=== PATIENT | female | born 1945 | race Caucasian/White ===

== ENCOUNTER 2017-10-22 15:25 | Emergency (ER) | payer OTHER, SELFPAY ==
[2017-10-22 15:47] VITALS: BP 163/61; PULSE 88; RESP 18; TEMP 36.8; O2SAT 99
--- NOTE | 2017-10-22 16:21 | DI.RAD.S_ITS ---
PROCEDURE: XR CHEST 1V INDICATIONS: fever TECHNIQUE: One view of the chest was acquired. COMPARISON: None. FINDINGS: Surgical changes and devices: A PICC line extends from left-sided approach into the distal SVC just below the azygos arch level. Lungs and pleura: No pleural effusions or pneumothorax. Lungs are clear considering reduced inspiratory line. Mediastinum: Mediastinal contours appear normal. Heart size is normal. Bones and chest wall: No suspicious bony lesions. Overlying soft tissues appear unremarkable. IMPRESSION: Normal PICC line positioning, reduced inspiratory volume, no pneumonia found. Slight basilar atelectasis is present medially in the setting of reduced inspiration. Dictated by: Jose Head M.D. on 10/22/2017 at 16:54 Approved by: Jose Head M.D. on 10/22/2017 at 16:55
[2017-10-22 16:30] VITALS: BP 147/55; PULSE 67; RESP 14; TEMP 36.9
[2017-10-22 17:00] VITALS: BP 171/57
[2017-10-22 17:03] LABS: Add Manual Diff / Slide Review NO; Basophils Percent Auto 0.5 % (0-2); Eosinophils Percent Auto 1.8 % (2-4); Hematocrit 24.6 % (36-46); Hemoglobin 8.2 g/dL (12.0-16.0); Lymphocytes Percent Auto 9.3 % (25-40); Mean Corpuscular HGB Conc 33.2 % (30-36); Mean Corpuscular Volume 93.3 fL (80-100); Monocytes Percent Auto 10.5 % (3-14); Neutrophils Absolute Auto 6400 /uL (3000-5900); Neutrophils Percent Auto 77.9 % (50-75); Platelet Count 485 X10^3/uL (150-400); Red Blood Cell Count 2.64 X10^6/uL (4.0-5.2); Red Cell Distribution Width 14.7 % (11.6-14.8); White Blood Cell Count 8.2 X10^3/uL (4.5-11.0)
[2017-10-22 17:23] LABS: BUN Creatinine Ratio 7.9 (6-22); Blood Urea Nitrogen 11 mg/dL (7-17); Calcium 8.9 mg/dL (8.4-10.2); Carbon Dioxide 25 mmol/L (22-32); Chloride 101 mmol/L (98-107); Estimated Glomerular Filt Rate 37.2 mL/min (>60); Glucose 178 mg/dL (80-110); HEMOLYSIS < 15 (0-50); Lactate (Lactic Acid) 1.4 mmol/L (0.7-2.1); Potassium 4.9 mmol/L (3.4-5.1); Sodium 137 mmol/L (137-145)
[2017-10-22 17:41] LABS: Procalcitonin < 0.05 ng/mL (<0.5)
[2017-10-22 18:00] VITALS: BP 151/88; PULSE 77; RESP 17; TEMP 37.2; O2SAT 94
[2017-10-22 19:20] VITALS: BP 146/85; PULSE 87; TEMP 36.9; O2SAT 99
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
== END 2017-10-22 19:56 | disposition home or self-care (01) ==
PROVIDERS: Emergency Medicine; Emergency Provider Emergency Medicine; PCP Family Medicine
DX: R50.9 Fever, unspecified (principal); Z95.828 Presence of other vascular implants and grafts
CPT/HCPCS: 36591; 71045; 80048; 82962; 83605; 84145; 85025; 87040; 99283; 99284

== ENCOUNTER → 2017-10-30 10:59 | Outpatient (REF) | payer OTHER, SELFPAY ==
[2017-10-30 11:14] LABS: Add Manual Diff / Slide Review NO; Basophils Percent Auto 1.4 % (0-2); Eosinophils Percent Auto 3.5 % (2-4); Hematocrit 26.9 % (36-46); Hemoglobin 8.8 g/dL (12.0-16.0); Lymphocytes Percent Auto 12.5 % (25-40); Mean Corpuscular HGB Conc 32.7 % (30-36); Mean Corpuscular Hemoglobin 30.4 PG (26-34); Monocytes Percent Auto 9.5 % (3-14); Neutrophils Absolute Auto 4800 /uL (3000-5900); Neutrophils Percent Auto 73.1 % (50-75); Platelet Count 274 X10^3/uL (150-400); Red Cell Distribution Width 15.3 % (11.6-14.8); White Blood Cell Count 6.6 X10^3/uL (4.5-11.0)
[2017-10-30 11:20] LABS: Alanine Aminotransferase 21 IU/L (9-52); Albumin 2.9 g/dL (3.5-5.0); Albumin Globulin Ratio 1.1 (1.0-2.8); Alkaline Phosphatase 75 U/L (38-126); Aspartate Aminotransferase 15 IU/L (14-36); BUN Creatinine Ratio 17.5 (6-22); Bilirubin Total 0.2 mg/dL (0.2-1.3); Blood Urea Nitrogen 21 mg/dL (7-17); Carbon Dioxide 24 mmol/L (22-32); Chloride 101 mmol/L (98-107); Estimated Glomerular Filt Rate 44.4 mL/min (>60); Globulin 2.7 g/dL (1.7-4.1); Glucose 118 mg/dL (80-110); HEMOLYSIS < 15 (0-50); Potassium 5.2 mmol/L (3.4-5.1); Sodium 135 mmol/L (137-145); Total Protein 5.6 g/dL (6.3-8.2)
[2017-10-30 11:26] LABS: Vancomycin Trough 13.1 ug/mL (10-20)
== END ==
LOC: LAB 10:59
PROVIDERS: PCP Family Medicine; Visit Provider Family Medicine
DX: S67.21XA Crushing injury of right hand, initial encounter (principal); M86.041 Acute hematogenous osteomyelitis, right hand
CPT/HCPCS: 80048; 80076; 80202; 85025

== ENCOUNTER → 2017-11-15 09:06 | Outpatient (CLI) | payer OTHER, SELFPAY ==
[2017-11-15 10:10] LABS: Add Manual Diff / Slide Review NO; Basophils Percent Auto 0.8 % (0-2); Hemoglobin 7.8 g/dL (12.0-16.0); Lymphocytes Percent Auto 11.8 % (25-40); Mean Corpuscular HGB Conc 33.3 % (30-36); Mean Corpuscular Hemoglobin 30.7 PG (26-34); Mean Corpuscular Volume 92.1 fL (80-100); Monocytes Percent Auto 7.5 % (3-14); Neutrophils Absolute Auto 7400 /uL (3000-5900); Neutrophils Percent Auto 78.9 % (50-75); Platelet Count 321 X10^3/uL (150-400); Red Blood Cell Count 2.53 X10^6/uL (4.0-5.2); Red Cell Distribution Width 15.7 % (11.6-14.8); White Blood Cell Count 9.4 X10^3/uL (4.5-11.0)
[2017-11-15 10:11] LABS: Hematocrit 23.3 % (36-46)
[2017-11-15 11:14] LABS: Alanine Aminotransferase 17 IU/L (9-52); Albumin 3.5 g/dL (3.5-5.0); Albumin Globulin Ratio 1.2 (1.0-2.8); Alkaline Phosphatase 51 U/L (38-126); Aspartate Aminotransferase 19 IU/L (14-36); BUN Creatinine Ratio 14.6 (6-22); Bilirubin Total 0.2 mg/dL (0.2-1.3); Blood Urea Nitrogen 19 mg/dL (7-17); Calcium 9.4 mg/dL (8.4-10.2); Carbon Dioxide 23 mmol/L (22-32); Chloride 101 mmol/L (98-107); Estimated Glomerular Filt Rate 40.5 mL/min (>60); Glucose 151 mg/dL (80-110); HEMOLYSIS < 15 (0-50); Potassium 5.3 mmol/L (3.4-5.1); Sodium 137 mmol/L (137-145); Total Protein 6.5 g/dL (6.3-8.2)
[2017-11-15 14:31] LABS: Clostridium Difficile Tox PCR Negative for C. diff
== END ==
PROVIDERS: PCP Family Medicine; Visit Provider Physician Assistant Medical
DX: M86.9 Osteomyelitis, unspecified (principal)
CPT/HCPCS: 36415; 80053; 85025; 87493

== ENCOUNTER → 2017-11-19 14:15 | Outpatient (CLI) | payer OTHER, SELFPAY ==
[2017-11-19 14:41] LABS: Add Manual Diff / Slide Review NO; Basophils Percent Auto 0.5 % (0-2); Eosinophils Percent Auto 1.6 % (2-4); Lymphocytes Percent Auto 14.7 % (25-40); Mean Corpuscular HGB Conc 32.7 % (30-36); Mean Corpuscular Hemoglobin 29.7 PG (26-34); Mean Corpuscular Volume 90.8 fL (80-100); Monocytes Percent Auto 10.7 % (3-14); Neutrophils Absolute Auto 6000 /uL (3000-5900); Neutrophils Percent Auto 72.5 % (50-75); Platelet Count 382 X10^3/uL (150-400); Red Blood Cell Count 2.68 X10^6/uL (4.0-5.2); Red Cell Distribution Width 15.8 % (11.6-14.8); White Blood Cell Count 8.2 X10^3/uL (4.5-11.0)
[2017-11-19 14:48] LABS: Hematocrit 24.3 % (36-46)
[2017-11-19 15:07] LABS: BUN Creatinine Ratio 17.1 (6-22); Blood Urea Nitrogen 24 mg/dL (7-17); Calcium 9.4 mg/dL (8.4-10.2); Carbon Dioxide 20 mmol/L (22-32); Chloride 100 mmol/L (98-107); Estimated Glomerular Filt Rate 37.2 mL/min (>60); Glucose 139 mg/dL (80-110); HEMOLYSIS < 15 (0-50); Potassium 5.3 mmol/L (3.4-5.1); Sodium 137 mmol/L (137-145)
== END ==
PROVIDERS: PCP Family Medicine; Visit Provider Physician Assistant Medical
DX: M86.9 Osteomyelitis, unspecified (principal)
CPT/HCPCS: 36415; 80048; 85025

== ENCOUNTER → 2017-11-22 08:01 | Outpatient (CLI) | payer OTHER, SELFPAY ==
[2017-11-22 08:44] LABS: BUN Creatinine Ratio 16.5 (6-22); Blood Urea Nitrogen 28 mg/dL (7-17); Calcium 9.3 mg/dL (8.4-10.2); Carbon Dioxide 26 mmol/L (22-32); Chloride 102 mmol/L (98-107); Estimated Glomerular Filt Rate 29.7 mL/min (>60); Glucose 70 mg/dL (80-110); HEMOLYSIS < 15 (0-50); Sodium 138 mmol/L (137-145)
[2017-11-22 08:45] LABS: Potassium 5.5 mmol/L (3.4-5.1)
[2017-11-22 09:23] LABS: Hemoglobin A1C% w Est Avg Glu 5.9 % (4.0-6.0)
== END ==
PROVIDERS: PCP Family Medicine; Visit Provider Physician Assistant Medical
DX: E11.8 Type 2 diabetes mellitus with unspecified complications (principal); Z79.4 Long term (current) use of insulin; M86.9 Osteomyelitis, unspecified
CPT/HCPCS: 36415; 80048; 83036

== ENCOUNTER 2017-11-22 15:50 | Emergency (ER) | payer OTHER, SELFPAY ==
[2017-11-22 16:17] VITALS: BP 135/65; PULSE 98; RESP 18; TEMP 37.4; O2SAT 99; BMI 28.0
--- NOTE | 2017-11-22 18:42 | DI.US.S_ITS ---
PROCEDURE: US RENAL COMPLETE INDICATIONS: WORSENING RENAL FUNCTION TECHNIQUE: Real-time scanning was performed of the kidneys and bladder, with image documentation. COMPARISON: None. FINDINGS: Kidneys: Kidneys are normal in size. Right kidney measures 11.3 cm long; left kidney measures 11.5 cm long. Right renal cortical thickness is 1.4 cm; left renal cortical thickness is 1.5 cm. Renal cortical echotexture is normal. No hydronephrosis or nephrolithiasis. No suspicious solid mass lesions. Bladder: Pre-void bladder volume is 151.8 mL. Pre-void images demonstrate no intraluminal masses or stones. On pre-void images, no ureteral jets are noted with color Doppler interrogation. (Of note, ureteral jets may not be detectable in up to 25% of cases due to insufficient differences in specific gravity between ureteral and bladder urine). Miscellaneous: No free pelvic fluid. IMPRESSION: No hydronephrosis. Dictated by: Darien Dent M.D. on 11/22/2017 at 20:38 Approved by: Darien Dent M.D. on 11/22/2017 at 20:41
--- NOTE | 2017-11-22 18:42 | DI.US.S_ITS ---
PROCEDURE: US PERIPH VENOUS LOW EXTREM BI INDICATIONS: EDEMA TECHNIQUE: Real-time imaging, as well as color and pulse Doppler interrogation, were performed of the deep veins of both legs from the inguinal ligament to the popliteal fossa. COMPARISON: [facility], US, US RENAL COMPLETE, 11/22/2017, 18:47. FINDINGS: The bilateral deep veins are normally compressible, and free of intraluminal thrombus. Color and pulse Doppler demonstrate normal phasic intravascular flow. There is normal augmentation response to distal compression maneuver. IMPRESSION: No deep venous thrombosis in the bilateral lower extremities. Dictated by: Darien Dent M.D. on 11/22/2017 at 20:45 Approved by: Darien Dent M.D. on 11/22/2017 at 20:47
[2017-11-22 18:46] LABS: Add Manual Diff / Slide Review NO; Basophils Percent Auto 0.5 % (0-2); Eosinophils Percent Auto 3.2 % (2-4); Hematocrit 22.2 % (36-46); Hemoglobin 7.3 g/dL (12.0-16.0); Lymphocytes Percent Auto 19.7 % (25-40); Mean Corpuscular HGB Conc 32.8 % (30-36); Mean Corpuscular Hemoglobin 29.8 PG (26-34); Mean Corpuscular Volume 90.9 fL (80-100); Monocytes Percent Auto 8.7 % (3-14); Neutrophils Absolute Auto 5400 /uL (3000-5900); Neutrophils Percent Auto 67.9 % (50-75); Platelet Count 370 X10^3/uL (150-400); Red Blood Cell Count 2.45 X10^6/uL (4.0-5.2); Red Cell Distribution Width 15.8 % (11.6-14.8)
[2017-11-22 18:55] LABS: Prothrombin Time 11.3 SECONDS (10.1-12.7)
[2017-11-22 18:58] VITALS: PULSE 80
[2017-11-22 18:58] LABS: Alanine Aminotransferase 14 IU/L (9-52); Albumin 3.7 g/dL (3.5-5.0); Albumin Globulin Ratio 1.4 (1.0-2.8); Alkaline Phosphatase 46 U/L (38-126); Aspartate Aminotransferase 18 IU/L (14-36); BUN Creatinine Ratio 18.1 (6-22); Bilirubin Total 0.3 mg/dL (0.2-1.3); Blood Urea Nitrogen 29 mg/dL (7-17); Calcium 9.2 mg/dL (8.4-10.2); Carbon Dioxide 22 mmol/L (22-32); Chloride 101 mmol/L (98-107); Estimated Glomerular Filt Rate 31.9 mL/min (>60); Globulin 2.6 g/dL (1.7-4.1); Glucose 89 mg/dL (80-110); HEMOLYSIS < 15 (0-50); Potassium 5.3 mmol/L (3.4-5.1); Sodium 135 mmol/L (137-145); Total Protein 6.3 g/dL (6.3-8.2)
--- NOTE | 2017-11-22 19:00 | PC.NURSE ---
Pt has had increasing Creatnine w/ unknown origen. Has had multiple surgical procedures w/ limited anti coagulation. Call from [facility] who is concerned about DVTs and renal impairment r/t clot formation. Requested renal ultrasound as well bilateral lower extremities.
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
[2017-11-22 20:08] VITALS: BP 131/72; PULSE 80; RESP 18; O2SAT 99
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
== END 2017-11-22 20:12 | disposition home or self-care (01) ==
PROVIDERS: Emergency Provider Emergency Medicine; PCP Family Medicine
DX: R60.0 Localized edema (principal)
CPT/HCPCS: 36591; 76770; 80053; 85025; 85610; 93970; 99282; 99284

== ENCOUNTER → 2017-11-28 13:28 | Outpatient (CLI) | payer OTHER, SELFPAY ==
[2017-11-28 14:53] LABS: Add Manual Diff / Slide Review NO; Basophils Percent Auto 0.6 % (0-2); Eosinophils Percent Auto 2.9 % (2-4); Hematocrit 24.6 % (36-46); Hemoglobin 8.1 g/dL (12.0-16.0); Lymphocytes Percent Auto 15.5 % (25-40); Mean Corpuscular HGB Conc 33.1 % (30-36); Mean Corpuscular Hemoglobin 29.5 PG (26-34); Mean Corpuscular Volume 89.3 fL (80-100); Monocytes Percent Auto 10.3 % (3-14); Neutrophils Absolute Auto 5000 /uL (3000-5900); Neutrophils Percent Auto 70.7 % (50-75); Platelet Count 293 X10^3/uL (150-400); Red Blood Cell Count 2.75 X10^6/uL (4.0-5.2); Red Cell Distribution Width 15.8 % (11.6-14.8); White Blood Cell Count 7.1 X10^3/uL (4.5-11.0)
[2017-11-28 15:23] LABS: BUN Creatinine Ratio 18.6 (6-22); Blood Urea Nitrogen 26 mg/dL (7-17); Calcium 9.1 mg/dL (8.4-10.2); Carbon Dioxide 27 mmol/L (22-32); Chloride 101 mmol/L (98-107); Estimated Glomerular Filt Rate 37.2 mL/min (>60); Glucose 173 mg/dL (80-110); HEMOLYSIS < 15 (0-50); Potassium 4.7 mmol/L (3.4-5.1); Sodium 140 mmol/L (137-145)
== END ==
PROVIDERS: Family Provider Family Medicine; PCP Family Medicine; Visit Provider Physician Assistant Medical
DX: M86.141 Other acute osteomyelitis, right hand (principal)
CPT/HCPCS: 36415; 80048; 85025

== ENCOUNTER → 2018-04-30 09:11 | Outpatient (CLI) | payer OTHER, SELFPAY ==
[2018-04-30 10:36] LABS: Creatinine Urine Random 97.9 mg/dL
[2018-04-30 10:40] LABS: Microalbumi Creatinin Ratio Ur 24.5 ug/mg CR (<30); Microalbumin Urine Random 2.4 mg/dL (0-1.6)
== END ==
PROVIDERS: Family Provider Family Medicine; PCP Family Medicine; Visit Provider Nurse Practitioner
DX: E11.65 Type 2 diabetes mellitus with hyperglycemia (principal); Z79.4 Long term (current) use of insulin
CPT/HCPCS: 82043; 82570

== ENCOUNTER → 2018-05-28 09:39 | Outpatient (CLI) | payer OTHER, SELFPAY ==
--- NOTE | 2018-05-28 | DI.MG.S_ITS ---
BILATERAL DIGITAL SCREENING MAMMOGRAM 3D/2D WITH CAD: 05/28/2018 CLINICAL: Routine screening. Family history of breast cancer. Comparison is made to exams dated: 05/20/2017 mammogram - [facility], 05/02/2016 mammogram, and 04/18/2015 mammogram - [facility]. The tissue of both breasts is heterogeneously dense. This may lower the sensitivity of mammography. Current study was also evaluated with a Computer Aided Detection (CAD) system. No significant masses, calcifications, or other findings are seen in either breast. There has been no significant interval change. IMPRESSION: NEGATIVE There is no mammographic evidence of malignancy. A 1 year screening mammogram is recommended. This exam was interpreted at Station ID: [id number]. NOTE: For mammograms, a report in lay terms will be sent to the patient. Approximately 15% of breast malignancies will not be visualized mammographically. In the management of a palpable breast mass, a negative mammogram must not discourage biopsy of a clinically suspicious lesion. Electronically Signed By: Tania hernandez/trae:05/28/2018 14:34:56 letter sent: Normal Exam ACR BI-RADS Category 1: Negative 3341F
== END ==
PROVIDERS: Family Provider Family Medicine; PCP Family Medicine; Visit Provider Family Medicine
DX: Z12.31 Encounter for screening mammogram for malignant neoplasm of breast (principal); Z80.3 Family history of malignant neoplasm of breast
CPT/HCPCS: 77063; 77067

== ENCOUNTER → 2018-06-17 13:42 | Outpatient (CLI) | payer OTHER, SELFPAY ==
--- NOTE | 2018-06-17 | DI.ECHO.S_ITS ---
[facility]---------+ [facility] +---------+ : : [address] : : : : [id number] : : : : Phone: [phone]---------+ Echocardiogram Report + + :Name: IQRA GALLARDO Study Date: 06/17/2018 Height: 62 in : :[facility] Location: [facility] Weight: 156 lb : : Gender: Female BSA: 1.7 m2 : :: 1945 Age: 72 yrs BP: 120/70 mmHg: :Reason For Study: Mitral valve disease : :Ordering Physician: : :Zenon Peoples M.D. Performed By: Diane Page : + + Interpretation Summary The ejection fraction is estimated to be 55-60%. Both atria are mildly dilated. An annuloplasty ring is noted in the mitral position. No significant mitral valve stenosis. There is trace mitral regurgitation. Compared to the prior echo report on 2017, there is no significant change. Procedure: A two-dimensional transthoracic echocardiogram with color flow and Doppler was performed. The study quality was technically adequate. Comparison is made with the echocardiogram of 08/17/2016. The patient was in normal sinus rhythm during the exam. Left Ventricle: Left ventricular wall thickness is borderline increased. The left ventricle is normal in size. The ejection fraction is estimated to be 55- 60%. Left ventricular wall motion is normal. Diastolic function could not be accurately assessed due to confounding valvular disease. Right Ventricle: The right ventricle is normal in size and function. Atria: Both atria are mildly dilated. There is no Doppler evidence for an interatrial shunt. Mitral Valve: An annuloplasty ring is noted in the mitral position. No significant mitral valve stenosis. There is trace mitral regurgitation. Aortic Valve: The aortic valve is trileaflet. The aortic valve opens well. No aortic regurgitation is present. Tricuspid Valve: The tricuspid valve is normal in structure and function. There is a trace or physiologic amount of tricuspid regurgitation. Pulmonary artery pressures cannot be estimated because of the lack of a measurable TR jet velocity. Pulmonic Valve: The pulmonic valve is not well visualized. There is a trace or physiologic amount of pulmonic regurgitation. Great Vessels: The aortic root is normal size. The ascending aorta is normal in size. The pulmonary artery is not well visualized, but is probably normal size. The IVC is of normal diameter and collapses greater than 50% with a sniff. This suggests a low right atrial pressure of 3 mm Hg. Pericardium/ Pleura There is no pericardial effusion. There is no pleural effusion. MMode/2D Measurements & Calculations LVIDd: 4.5 cm Ao root diam: 3.0 cm LVIDs: 3.2 cm asc Aorta Diam: 3.2 cm FS: 29.6 % EPSS: 0.23 cm IVSd: 1.1 cm LVPWd: 0.82 cm LV haas. diameter/BSA (cm/m^2): 2.6 LV sys. diameter/BSA (cm/m^2): 1.9 LA A2 area: 20.9 cm2 RA long axis: 4.9 cm LA A4 area: 18.0 cm2 RA area: 18.2 cm2 LA length (vol): 5.2 cm RA vol: 57.5 ml LA vol: 61.4 ml RA : 33.4 ml/m2 LA vol index: 35.7 ml/m2 IVC diam: 1.9 cm RVD1 (basal): 3.4 cm TAPSE: 1.7 cm Doppler Measurements & Calculations Ao V2 max: 116.2 cm/sec LVOT Max Dale: 75.5 cm/sec Ao V2 mean: 83.8 cm/sec LV V1 max P.3 mmHg Ao max P.4 mmHg LV V1 VTI: 15.3 cm Ao mean P.1 mmHg sev ratio: 0.77 Ao V2 VTI: 20.0 cm MV E max dale: 75.5 cm/sec PA V2 max: 52.5 cm/sec MV A max dale: 110.6 cm/sec PA V2 mean: 38.9 cm/sec MV E/A: 0.68 PA mean P.64 mmHg Med Peak E' Dale: 7.1 cm/sec PA Accel Time: 0.10 sec E/E' med: 10.6 Lat Peak E' Dale: 6.8 cm/sec E/E' lat: 11.1 E/e' average: 10.8 MV dec time: 0.17 sec MV P1/2t: 50.6 msec MV V2 mean: 55.9 cm/sec MV P1/2t max dale: 74.9 cm/sec MV mean P.5 mmHg MVA(P1/2t): 4.4 cm2 MV V2 VTI: 26.2 cm Reading Physician:05:42 PM
== END ==
PROVIDERS: Family Provider Family Medicine; PCP Family Medicine; Visit Provider Internal Medicine Cardiovascular Disease
DX: I05.9 Rheumatic mitral valve disease, unspecified (principal)
CPT/HCPCS: 93306

== ENCOUNTER → 2018-11-18 09:55 | Outpatient (CLI) | payer OTHER, SELFPAY ==
--- NOTE | 2018-11-18 | DI.RAD.S_ITS ---
PROCEDURE: XR FOOT LT MIN 3V INDICATIONS: Pain in left foot TECHNIQUE: 3 views of the foot were acquired. COMPARISON: None. FINDINGS: Bones: No fractures or dislocations. No suspicious bony lesions. There are [id number] osteoathletic changes at the tarsometatarsal joints and interphalangeal joints. Soft tissues: No tibiotalar joint effusion. Achilles tendon appears normal. IMPRESSION: [id number] osteoarthritis. Dictated by: Leandro Moses M.D. on 11/18/2018 at 18:20 Approved by: Leandro Moses M.D. on 11/18/2018 at 18:23
== END ==
PROVIDERS: PCP Internal Medicine; Visit Provider Internal Medicine
DX: M79.672 Pain in left foot (principal); M19.072 Primary osteoarthritis, left ankle and foot
CPT/HCPCS: 73630

== ENCOUNTER → 2019-09-14 08:58 | Outpatient (CLI) | payer OTHER, SELFPAY ==
[2019-09-14 10:10] LABS: Hemoglobin A1C% w Est Avg Glu 7.5 % (4.0-6.0)
[2019-09-14 10:37] LABS: Creatinine Urine Random 108.3 mg/dL
[2019-09-14 10:40] LABS: Alanine Aminotransferase 17 IU/L (<35); Albumin 3.9 g/dL (3.5-5.0); Albumin Globulin Ratio 1.4 (1.0-2.8); Alkaline Phosphatase 61 U/L (38-126); Aspartate Aminotransferase 22 IU/L (14-36); BUN Creatinine Ratio 22.6 (6-22); Bilirubin Total 0.4 mg/dL (0.2-1.3); Blood Urea Nitrogen 30 mg/dL (7-17); Calcium 9.9 mg/dL (8.4-10.2); Carbon Dioxide 23 mmol/L (22-32); Chloride 105 mmol/L (98-107); Estimated Glomerular Filt Rate 39.3 mL/min (>60); Globulin 2.8 g/dL (1.7-4.1); Glucose 175 mg/dL (80-110); HEMOLYSIS < 15 (0-50); Sodium 135 mmol/L (137-145); Total Protein 6.7 g/dL (6.3-8.2)
[2019-09-14 10:42] LABS: Microalbumi Creatinin Ratio Ur 14.7 ug/mg CR (<30); Microalbumin Urine Random 1.6 mg/dL (0-1.6); Potassium 5.4 mmol/L (3.4-5.1)
== END ==
PROVIDERS: PCP Internal Medicine; Referring Provider Nurse Practitioner Family; Visit Provider Nurse Practitioner Family
DX: E11.65 Type 2 diabetes mellitus with hyperglycemia (principal); E11.42 Type 2 diabetes mellitus with diabetic polyneuropathy; Z79.4 Long term (current) use of insulin
CPT/HCPCS: 36415; 80053; 82043; 82570; 83036

== ENCOUNTER → 2019-10-19 10:30 | Outpatient (CLI) | payer OTHER, SELFPAY ==
--- NOTE | 2019-10-19 | DI.MG.S_ITS ---
BILATERAL DIGITAL SCREENING MAMMOGRAM 3D/2D WITH CAD: 10/19/2019 CLINICAL: Routine screening. Family history of breast cancer. Comparison is made to exams dated: 05/28/2018 mammogram, 05/20/2017 mammogram - [facility], and 05/02/2016 mammogram - [facility]. The tissue of both breasts is heterogeneously dense. This may lower the sensitivity of mammography. Current study was also evaluated with a Computer Aided Detection (CAD) system. There are benign calcifications in both breasts. No significant masses, calcifications, or other findings are seen in either breast. There has been no significant interval change. IMPRESSION: BENIGN There is no mammographic evidence of malignancy. A 1 year screening mammogram is recommended. This exam was interpreted at Station ID: [id number]. NOTE: For mammograms, a report in lay terms will be sent to the patient. Approximately 15% of breast malignancies will not be visualized mammographically. In the management of a palpable breast mass, a negative mammogram must not discourage biopsy of a clinically suspicious lesion. Electronically Signed By: Enrique hartmann/trae:10/19/2019 19:55:50 letter sent: Normal Exam ACR BI-RADS Category 2: Benign Finding(s) 3342F
== END ==
PROVIDERS: PCP Family Medicine; Referring Provider Family Medicine; Visit Provider Internal Medicine
DX: Z12.31 Encounter for screening mammogram for malignant neoplasm of breast (principal); Z80.3 Family history of malignant neoplasm of breast
CPT/HCPCS: 77063; 77067

== ENCOUNTER → 2019-12-31 07:53 | Outpatient (CLI) | payer OTHER, SELFPAY ==
[2019-12-31 09:29] LABS: Hemoglobin A1C% w Est Avg Glu 7.6 % (4.0-6.0)
[2019-12-31 10:20] LABS: Alanine Aminotransferase 16 IU/L (<35); Albumin 3.7 g/dL (3.5-5.0); Albumin Globulin Ratio 1.2 (1.0-2.8); Alkaline Phosphatase 61 U/L (38-126); Aspartate Aminotransferase 21 IU/L (14-36); BUN Creatinine Ratio 21.6 (6-22); Bilirubin Total 0.4 mg/dL (0.2-1.3); Blood Urea Nitrogen 33 mg/dL (7-17); Calcium 9.4 mg/dL (8.4-10.2); Carbon Dioxide 29 mmol/L (22-32); Chloride 106 mmol/L (98-107); Estimated Glomerular Filt Rate 33.4 mL/min (>60); Glucose 128 mg/dL (80-110); HEMOLYSIS < 15 (0-50); Potassium 4.9 mmol/L (3.4-5.1); Sodium 137 mmol/L (137-145); Total Protein 6.7 g/dL (6.3-8.2)
[2019-12-31 10:22] LABS: Creatinine Urine Random 142.3 mg/dL
[2019-12-31 10:25] LABS: Microalbumi Creatinin Ratio Ur 16.1 ug/mg CR (<30); Microalbumin Urine Random 2.3 mg/dL (0-1.6)
== END ==
PROVIDERS: PCP Family Medicine; Referring Provider Nurse Practitioner Family; Visit Provider Nurse Practitioner Family
DX: E11.65 Type 2 diabetes mellitus with hyperglycemia (principal); Z79.4 Long term (current) use of insulin; E11.42 Type 2 diabetes mellitus with diabetic polyneuropathy
CPT/HCPCS: 36415; 80053; 82043; 82570; 83036

== ENCOUNTER → 2020-04-07 07:31 | Outpatient (CLI) | payer MEDICARE, SELFPAY ==
[2020-04-07 08:33] LABS: Hemoglobin A1C% w Est Avg Glu 7.9 % (4.0-6.0)
== END ==
PROVIDERS: PCP Internal Medicine; Referring Provider Internal Medicine; Visit Provider Nurse Practitioner Family
DX: E11.65 Type 2 diabetes mellitus with hyperglycemia (principal); Z79.4 Long term (current) use of insulin
CPT/HCPCS: 36415; 83036

== ENCOUNTER → 2020-04-20 07:18 | Outpatient (CLI) | payer MEDICARE, SELFPAY ==
[2020-04-20 09:00] LABS: Cholesterol 170 mg/dL (140-199); HDL Cholesterol 74 mg/dL (40-60); LDL Cholesterol Calculated 77 mg/dL (<100); Triglycerides 96 mg/dL (35-150)
== END ==
PROVIDERS: PCP Internal Medicine; Referring Provider Nurse Practitioner Family; Visit Provider Nurse Practitioner Family
DX: E11.21 Type 2 diabetes mellitus with diabetic nephropathy (principal); N18.32 Chronic kidney disease, stage 3b; Z79.4 Long term (current) use of insulin
CPT/HCPCS: 36415; 80061

== ENCOUNTER → 2020-06-27 13:51 | Outpatient (CLI) | payer MEDICARE, SELFPAY ==
[2020-06-27 14:00] LABS: RBC Urine None Seen (0-5/HPF)
[2020-06-27 14:50] LABS: Add Manual Diff / Slide Review NO; Basophils Absolute Auto 0 /uL (0-100); Basophils Percent Auto 0.6 % (0-2); Eosinophils Absolute Auto 200 /uL (0-450); Eosinophils Percent Auto 2.5 % (2-4); Hematocrit 35.2 % (36-46); Hemoglobin 11.8 g/dL (12.0-16.0); Lymphocytes Absolute Auto 2100 /uL (1100-4500); Mean Corpuscular HGB Conc 33.5 % (30-36); Mean Corpuscular Hemoglobin 32.3 PG (26-34); Mean Corpuscular Volume 96.4 fL (80-100); Monocytes Absolute Auto 500 /uL (0-900); Monocytes Percent Auto 7.4 % (3-14); Neutrophils Absolute Auto 3800 /uL (1500-7000); Neutrophils Percent Auto 57.5 % (50-75); Platelet Count 259 X10^3/uL (150-400); Red Blood Cell Count 3.65 X10^6/uL (4.0-5.2); Red Cell Distribution Width 12.9 % (11.6-14.8); White Blood Cell Count 6.6 X10^3/uL (4.5-11.0)
[2020-06-27 14:56] LABS: Bilirubin Urine UA NEGATIVE (NEGATIVE); Color Urine UA YELLOW; Glucose Urine UA NEGATIVE (Negative); Ketones Urine UA NEGATIVE (NEGATIVE); Leukocyte Esterase Urine UA TRACE (NEGATIVE); Nitrite Urine UA NEGATIVE (Negative); Occult Blood Urine UA TRACE-INTACT (Negative); Protein Urine UA NEGATIVE (Negative); Specific Gravity Urine UA 1.025 (1.000-1.035); Urobilinogen Urine UA 0.2 E.U./dL (0.2)
[2020-06-27 15:14] LABS: HEMOLYSIS < 15 (0-50); Iron 103 ug/dL (37-170)
[2020-06-27 15:23] LABS: Appearance Urine UA Clear
[2020-06-27 15:24] LABS: Squamous Epithelial Cell Urine 0-1 /HPF (0-5/HPF); WBC Urine 5-10/HPF (0-5/HPF)
[2020-06-27 15:25] LABS: Bacteria Urine Few (2-10); Culture Indicated Urine Specimen Cultured; Percent Iron Saturation 47 % (15-50); Total Iron Binding Capacity 217 ug/dL (265-497); Transferrin 199 mg/dL (206-381)
[2020-06-27 17:55] LABS: Albumin 3.7 g/dL (3.5-5.0); BUN Creatinine Ratio 26.4 (6-22); Blood Urea Nitrogen 37 mg/dL (7-17); Calcium 9.6 mg/dL (8.4-10.2); Carbon Dioxide 24 mmol/L (22-32); Chloride 104 mmol/L (98-107); Glucose 190 mg/dL (80-110); HEMOLYSIS < 15 (0-50); Phosphorous 4.5 mg/dL (2.8-4.1); Potassium 5.3 mmol/L (3.4-5.1); Sodium 135 mmol/L (137-145)
[2020-06-27 17:59] LABS: Creatinine Urine Random 73.7 mg/dL
[2020-06-27 18:00] LABS: Microalbumi Creatinin Ratio Ur 13.5 ug/mg CR (<30)
[2020-06-27 18:30] LABS: Ferritin 33 ng/mL (11-264)
== END ==
PROVIDERS: PCP Internal Medicine; Referring Provider Internal Medicine Nephrology; Visit Provider Internal Medicine Nephrology
DX: N18.32 Chronic kidney disease, stage 3b (principal)
CPT/HCPCS: 36415; 80069; 81001; 82043; 82570; 82728; 83540; 83550; 85025; 87077; 87086; 87186

== ENCOUNTER → 2020-07-20 07:06 | Outpatient (CLI) | payer MEDICARE, SELFPAY ==
[2020-07-20 08:45] LABS: Hemoglobin A1C% w Est Avg Glu 7.3 % (4.0-6.0)
[2020-07-20 09:12] LABS: Cholesterol 171 mg/dL (140-199); HDL Cholesterol 74 mg/dL (40-60); LDL Cholesterol Calculated 83 mg/dL (<100); Triglycerides 69 mg/dL (35-150)
== END ==
PROVIDERS: PCP Internal Medicine; Referring Provider Nurse Practitioner Family; Visit Provider Nurse Practitioner Family
DX: E11.21 Type 2 diabetes mellitus with diabetic nephropathy (principal); N18.32 Chronic kidney disease, stage 3b; Z79.4 Long term (current) use of insulin
CPT/HCPCS: 36415; 80061; 83036

== ENCOUNTER → 2020-10-18 07:11 | Outpatient (CLI) | payer MEDICARE, SELFPAY ==
[2020-10-18 09:10] LABS: Cholesterol 162 mg/dL (140-199); HDL Cholesterol 66 mg/dL (40-60); LDL Cholesterol Calculated 72 mg/dL (<100); Triglycerides 122 mg/dL (35-150)
== END ==
PROVIDERS: PCP Internal Medicine; Referring Provider Nurse Practitioner Family; Visit Provider Nurse Practitioner Family
DX: E11.21 Type 2 diabetes mellitus with diabetic nephropathy (principal); N18.32 Chronic kidney disease, stage 3b; Z79.4 Long term (current) use of insulin
CPT/HCPCS: 36415; 80061

== ENCOUNTER → 2020-11-10 17:52 | Outpatient (CLI) | payer MEDICARE, SELFPAY ==
--- NOTE | 2020-11-10 | DI.MG.S_ITS ---
BILATERAL DIGITAL SCREENING MAMMOGRAM 3D/2D WITH CAD: 11/10/2020 CLINICAL: Routine screening. Family history of breast cancer. Comparison is made to exams dated: 10/19/2019 mammogram, 05/28/2018 mammogram, and 05/20/2017 mammogram - [facility]. The tissue of both breasts is heterogeneously dense. This may lower the sensitivity of mammography. Current study was also evaluated with a Computer Aided Detection (CAD) system. There are benign calcifications in both breasts. No significant masses, calcifications, or other findings are seen in either breast. There has been no significant interval change. IMPRESSION: BENIGN There is no mammographic evidence of malignancy. A 1 year screening mammogram is recommended. This exam was interpreted at Station ID: [id number]. NOTE: For mammograms, a report in lay terms will be sent to the patient. Approximately 15% of breast malignancies will not be visualized mammographically. In the management of a palpable breast mass, a negative mammogram must not discourage biopsy of a clinically suspicious lesion. Electronically Signed By: Tripp Glass M.D., jr/trae:11/11/2020 11:44:03 letter sent: Normal Exam ACR BI-RADS Category 2: Benign Finding(s) 3342F
== END ==
PROVIDERS: PCP Internal Medicine; Referring Provider Internal Medicine; Visit Provider Internal Medicine
DX: Z12.31 Encounter for screening mammogram for malignant neoplasm of breast (principal)
CPT/HCPCS: 77063; 77067

== ENCOUNTER → 2020-12-09 10:37 | Outpatient (CLI) | payer MEDICARE, SELFPAY ==
[2020-12-09 12:14] LABS: Add Manual Diff / Slide Review NO; Basophils Absolute Auto 0 /uL (0-100); Basophils Percent Auto 0.6 % (0-2); Eosinophils Absolute Auto 100 /uL (0-450); Eosinophils Percent Auto 1.3 % (2-4); Hematocrit 35.3 % (36-46); Hemoglobin 11.8 g/dL (12.0-16.0); Lymphocytes Absolute Auto 2000 /uL (1100-4500); Lymphocytes Percent Auto 28.2 % (25-40); Mean Corpuscular HGB Conc 33.5 % (30-36); Mean Corpuscular Hemoglobin 32.3 PG (26-34); Mean Corpuscular Volume 96.4 fL (80-100); Monocytes Absolute Auto 500 /uL (0-900); Monocytes Percent Auto 6.9 % (3-14); Neutrophils Absolute Auto 4500 /uL (1500-7000); Platelet Count 282 X10^3/uL (150-400); Red Blood Cell Count 3.66 X10^6/uL (4.0-5.2); Red Cell Distribution Width 12.6 % (11.6-14.8); White Blood Cell Count 7.1 X10^3/uL (4.5-11.0)
[2020-12-09 12:55] LABS: Albumin 3.9 g/dL (3.5-5.0); BUN Creatinine Ratio 22.7 (6-22); Blood Urea Nitrogen 32 mg/dL (7-17); Calcium 9.6 mg/dL (8.4-10.2); Carbon Dioxide 28 mmol/L (22-32); Chloride 102 mmol/L (98-107); Estimated Glomerular Filt Rate 36.6 mL/min (>60); Glucose 113 mg/dL (80-110); HEMOLYSIS < 15 (0-50); Phosphorous 4.3 mg/dL (2.8-4.1); Potassium 5.1 mmol/L (3.4-5.1); Sodium 136 mmol/L (137-145)
[2020-12-10 09:39] LABS: Parathyroid Hormone Int 36 pg/mL (15-65)
== END ==
PROVIDERS: PCP Internal Medicine; Referring Provider Internal Medicine Nephrology; Visit Provider Internal Medicine Nephrology
DX: N18.32 Chronic kidney disease, stage 3b (principal)
CPT/HCPCS: 36415; 80069; 83970; 85025

== ENCOUNTER → 2021-01-12 07:15 | Outpatient (CLI) | payer MEDICARE, SELFPAY ==
[2021-01-12 08:32] LABS: Cholesterol 154 mg/dL (140-199); HDL Cholesterol 57 mg/dL (40-60); LDL Cholesterol Calculated 72 mg/dL (<100); Triglycerides 127 mg/dL (35-150)
[2021-01-12 18:05] LABS: Hep C Virus Ab w/Reflex Quant NEGATIVE s/c (NEGATIVE)
== END ==
PROVIDERS: PCP Internal Medicine; Referring Provider Internal Medicine; Visit Provider Internal Medicine
DX: E78.5 Hyperlipidemia, unspecified (principal); Z11.59 Encounter for screening for other viral diseases
CPT/HCPCS: 36415; 80061; 86803

== ENCOUNTER → 2021-02-27 08:14 | Outpatient (CLI) | payer MEDICARE, SELFPAY ==
[2021-02-27 08:38] LABS: COVID19 -Nasal RAPID Negative (Negative)
== END ==
PROVIDERS: PCP Internal Medicine; Visit Provider Physician Assistant
DX: Z20.822 Contact with and (suspected) exposure to COVID-19 (principal)
CPT/HCPCS: 87635

== ENCOUNTER 2021-02-28 06:29 | Day surgery (SDC) | payer OTHER, SELFPAY ==
[2021-02-28] MEDS: CATARACT EYE COMPOUND (10 DROPS/SYRINGE) 3 DROPS EYE-OP (07:06)
[2021-02-28 07:18] VITALS: BMI 27.0
[2021-02-28 07:27] VITALS: BP 154/65; PULSE 85; RESP 18; TEMP 36.6; O2SAT 97
--- NOTE | 2021-02-28 07:40 | SUR.PREOP ---
PREOP- PHARMACY CALLED AT 0710-NO PROPARACAINE IN PYXIS/UNIT. 0730-PHARMACY RECALLED-TO BE HERE AT 0740AM. 0735-DR CAMP AWARE MED NOT GIVEN-AWAITING PHARMACY.
--- NOTE | 2021-02-28 07:50 | P.OP_ITS ---
Operative Date/Time/Diagnoses Pre-op diagnosis: Nuclear cataract right eye Procedure & Clinicians Procedure: Cataract Surgery Same procedure as scheduled: Yes Surgeon: Ant Ambrosio Anesthesia Type: MAC +/- and Sedation Operative Notes Procedure in detail: Patient brought to the operating suite. Tetracaine drops placed in the right eye. Marking instrument was used to dwayne the vertical and horizontal meridians. Patient was prepped and draped in sterile manner. Wire lid speculum was placed in the eye. Marking instrument was used to dwayne the 55 degree meridian. Betadine drops were placed on the eye. This was irrigated. Lidocaine jelly was placed on the eye. A paracentesis port was created with a side-port blade. 0.1 mL 1% preservative free lidocaine was injected into the anterior chamber. The anterior chamber was deepened with viscoelastic. 2.6 mm keratome was used to create a temporal clear corneal incision. Cystotome and Utrata forceps were used to create continuous tear capsulorrhexis. Balanced salt solution was used to hydro dissect the nucleus. The phacoemulsification handpiece was inserted and the nucleus was removed using the stop and chop technique. The irrigation aspiration handpiece was inserted and the remaining cortex was removed. Anterior chamber was deepened with viscoelastic. An Lamb [id number] intraocular lens with a power of 15.5 was injected into the capsular bag. Irrigation aspiration handpiece was inserted and the remaining viscoelastic was removed. The lens was rotated to the 55 degree meridian. Incision was hydrated with balanced salt solution and found to be leak free with pressure with Weck-Park sponges. 0.1 mL Vigamox injected anterior chamber. 0.3 mL Kenalog 10 mg was injected subconj unctivally. Lid speculum was removed. The patient left the operating room in excellent condition. Complications: none Post-operative Condition: stable Disposition: same day surgery
--- NOTE | 2021-02-28 07:50 | PM.PREOP ---
Pre-operative Note Interval Note History & Physical reviewed/Exam performed by Physician: Yes Changes to H&P: No
[2021-02-28] MEDS: MOXIFLOXACIN INJ 4 MG/0.8 ML VIAL 0.5 MG EYE-OP (08:11)
[2021-02-28] MEDS: HYALURONATE SODIUM 30 MG-10 MG/ML SYRINGES 1 BOX INTRAOCULA (08:11)
[2021-02-28] MEDS: PHENYLEPHRINE/LIDOCAINE VIAL (OR) 0.2 ML EYE-OP (08:12)
[2021-02-28] MEDS: BALANCED SALT IRRIG SOLN NO.2 500 ML, EPINEPHrine 1 MG IRR (08:12)
[2021-02-28] MEDS: TRIAMCINOLONE 50 MG/5 ML VIAL INJ (08:12)
[2021-02-28] MEDS: TETRACAINE 0.5% OPHTH DROPS 4 ML 2 DROPS EYE-OP (08:13)
[2021-02-28] MEDS: LIDOCAINE 2% (GLYDO) 6 ML GEL TOP (08:13)
[2021-02-28 08:22] VITALS: BP 120/72; PULSE 82; RESP 16; TEMP 36.9; O2SAT 100
== END 2021-02-28 08:38 | disposition home or self-care (01) ==
PROVIDERS: PCP Internal Medicine; Referring Provider Ophthalmology; Visit Provider Ophthalmology
PROC: (CPT 66984; principal; 2021-02-28 07:45)
DX: H25.11 Age-related nuclear cataract, right eye (principal); E11.9 Type 2 diabetes mellitus without complications; I10 Essential (primary) hypertension; D64.9 Anemia, unspecified; Z79.4 Long term (current) use of insulin; E78.5 Hyperlipidemia, unspecified
CPT/HCPCS: 66984; 82962; J0171; J2250; J3301; V2787

== ENCOUNTER → 2021-03-13 09:01 | Outpatient (CLI) | payer OTHER, SELFPAY ==
[2021-03-13 13:08] LABS: COVID19 -Nasal RAPID Negative (Negative)
== END ==
PROVIDERS: PCP Internal Medicine; Referring Provider Ophthalmology; Visit Provider Ophthalmology
DX: Z20.822 Contact with and (suspected) exposure to COVID-19 (principal)
CPT/HCPCS: 87635; C9803

== ENCOUNTER 2021-03-14 06:55 | Day surgery (SDC) | payer OTHER, SELFPAY ==
[2021-03-14] MEDS: PROPARACAINE 0.5% OPHTH SOL 2 DROPS EYE-OP (07:10)
[2021-03-14] MEDS: CATARACT EYE COMPOUND (10 DROPS/SYRINGE) 3 DROPS EYE-OP (07:11)
--- NOTE | 2021-03-14 07:15 | SUR.OPER ---
Supine on eye stretcher, head on extension cradle secured with tape. Arms tucked at sides with blanket. Pillow under knees.
[2021-03-14 07:20] VITALS: BP 117/68; PULSE 78; RESP 18; TEMP 36.5; O2SAT 97; BMI 26.8
[2021-03-14] MEDS: HYALURONATE SODIUM 30 MG-10 MG/ML SYRINGES 1 BOX INTRAOCULA (08:19)
[2021-03-14] MEDS: MOXIFLOXACIN INJ 4 MG/0.8 ML VIAL 0.5 MG EYE-OP (08:19)
[2021-03-14] MEDS: PHENYLEPHRINE/LIDOCAINE VIAL (OR) 0.2 ML EYE-OP (08:20)
[2021-03-14] MEDS: BALANCED SALT IRRIG SOLN NO.2 500 ML, EPINEPHrine 1 MG IRR (08:20)
[2021-03-14] MEDS: LIDOCAINE 2% (GLYDO) 6 ML GEL TOP (08:20)
[2021-03-14] MEDS: TETRACAINE 0.5% OPHTH DROPS 4 ML 2 DROPS EYE-OP (08:21)
[2021-03-14 08:40] VITALS: BP 118/70; PULSE 76; RESP 18; TEMP 36.2; O2SAT 97
--- NOTE | 2021-03-14 13:38 | PM.PREOP ---
Pre-operative Note Interval Note History & Physical reviewed/Exam performed by Physician: Yes Changes to H&P: No Addendum Addendum Note: There are no non surgical alternatives to the patients condition. Deterioration of the patient's condition is expected. There is the possibility that delay results in more complex future surgery.
--- NOTE | 2021-03-14 13:39 | PM.OP.1 ---
Operative Date/Time/Diagnoses Pre-op diagnosis: Nuclear Cataract Left eye Post-op diagnosis: same Procedure & Clinicians Same procedure as scheduled: Yes Surgeon: Ant Ambrosio Anesthesia Type: MAC +/- and Sedation Operative Notes Procedure in detail: Patient brought to the operating suite. Tetracaine drops placed in the left eye. Patient was prepped and draped in sterile manner. Wire lid speculum was placed in the eye. Betadine drops were placed on the eye. This was irrigated. Lidocaine jelly was placed on the eye. A paracentesis port was created with a side-port blade. 0.1 mL 1% preservative free lidocaine was injected into the anterior chamber. The anterior chamber was deepened with viscoelastic. 2.6 mm keratome was used to create a temporal clear corneal incision. Cystotome and Utrata forceps were used to create continuous tear capsulorrhexis. Balanced salt solution was used to hydro dissect the nucleus. The phacoemulsification handpiece was inserted and the nucleus was removed using the stop and chop technique. The irrigation aspiration handpiece was inserted and the remaining cortex was removed. Anterior chamber was deepened with viscoelastic. An Lamb [id number] intraocular lens with a power of 18.0 was injected into the capsular bag. Irrigation aspiration handpiece was inserted and the remaining viscoelastic was removed. Incision was hydrated with balanced salt solution and found to be leak free with pressure with Weck-Park sponges. 0.1 mL Vigamox injected anterior chamber. 0.3 mL Kenalog 10 mg was injected subconjunctivally. Lid speculum was removed. The patient left the operating room in excellent condition. Complications: none Post-operative Condition: stable Disposition: same day surgery
== END 2021-03-14 09:00 | disposition home or self-care (01) ==
LOC: OR 06:56
PROVIDERS: PCP Internal Medicine; Referring Provider Ophthalmology; Visit Provider Ophthalmology
PROC: (CPT 66984; principal; 2021-03-14 08:15)
DX: H25.12 Age-related nuclear cataract, left eye (principal); I10 Essential (primary) hypertension; E78.00 Pure hypercholesterolemia, unspecified; D64.9 Anemia, unspecified; E11.9 Type 2 diabetes mellitus without complications; Z79.4 Long term (current) use of insulin
CPT/HCPCS: 66984; 82962; J0171; J2250; V2787

== ENCOUNTER → 2021-05-26 10:17 | Outpatient (CLI) | payer OTHER, SELFPAY ==
[2021-05-26 11:54] LABS: Add Manual Diff / Slide Review NO; Basophils Absolute Auto 0 /uL (0-100); Basophils Percent Auto 0.4 % (0-2); Eosinophils Absolute Auto 100 /uL (0-450); Eosinophils Percent Auto 1.1 % (2-4); Hematocrit 35.4 % (36-46); Hemoglobin 12.2 g/dL (12.0-16.0); Lymphocytes Absolute Auto 1900 /uL (1100-4500); Lymphocytes Percent Auto 26.5 % (25-40); Mean Corpuscular HGB Conc 34.4 % (30-36); Mean Corpuscular Hemoglobin 32.8 PG (26-34); Mean Corpuscular Volume 95.2 fL (80-100); Monocytes Absolute Auto 500 /uL (0-900); Monocytes Percent Auto 6.5 % (3-14); Neutrophils Absolute Auto 4700 /uL (1500-7000); Neutrophils Percent Auto 65.5 % (50-75); Platelet Count 262 X10^3/uL (150-400); Red Blood Cell Count 3.72 X10^6/uL (4.0-5.2); Red Cell Distribution Width 12.8 % (11.6-14.8); White Blood Cell Count 7.2 X10^3/uL (4.5-11.0)
[2021-05-26 12:07] LABS: Blood Urea Nitrogen 35 mg/dL (7-17); Calcium 9.2 mg/dL (8.4-10.2); Carbon Dioxide 26 mmol/L (22-32); Chloride 104 mmol/L (98-107); Estimated Glomerular Filt Rate 36.9 mL/min (>60); Glucose 126 mg/dL (80-110); HEMOLYSIS < 15 (0-50); Phosphorous 4.4 mg/dL (2.8-4.1); Potassium 5.2 mmol/L (3.4-5.1); Sodium 137 mmol/L (137-145)
[2021-05-26 15:53] LABS: Creatinine Urine Random 101.6 mg/dL
[2021-05-26 15:58] LABS: Microalbumi Creatinin Ratio Ur 26.5 ug/mg CR (<30); Microalbumin Urine Random 2.7 mg/dL (0-1.6)
== END ==
PROVIDERS: PCP Internal Medicine; Referring Provider Internal Medicine Nephrology; Visit Provider Internal Medicine Nephrology
DX: N18.32 Chronic kidney disease, stage 3b (principal)
CPT/HCPCS: 36415; 80069; 82043; 82570; 85025

== ENCOUNTER → 2021-09-11 09:06 | Outpatient (CLI) | payer OTHER, SELFPAY ==
--- NOTE | 2021-09-11 | DI.ECHO.S_ITS ---
[facility] +---------+ : : [address] : [address] : : : : [id number] : : : : Phone: [phone]---------+ Echocardiogram Report + + :Name: IQRA GALLARDO Study Date: 09/11/2021 Height: 62 in : :[facility] ReadingLocation: Weight: 149 lb : : Gender: Female BSA: 1.7 m2 : :: 1945 Age: 75 yrs BP: 141/75 mmHg: :Reason For Study: Hypertension : :Ordering Physician: ARCHANA, : :ALLISON Performed By: Haroldo Melgar : :Referring: ALLISON PEOPLES : + + Interpretation Summary The ejection fraction is estimated to be 55-60%. An annuloplasty ring is noted in the mitral position. The mitral valve mean gradient is 4 mmHg. There is no mitral regurgitation noted. Compared to the prior echo report on 2018, there is no significant change. Procedure: A two-dimensional transthoracic echocardiogram with color flow and Doppler was performed. The study quality was technically adequate. Comparison is made with the echocardiogram of 06/17/2018. The patient was in normal sinus rhythm during the exam. Left Ventricle: The left ventricle is normal in size and wall thickness. Left ventricular systolic function is normal. The ejection fraction is estimated to be 55-60%. There are no focal wall motion abnormalities. Diastolic function could not be accurately assessed due to confounding valvular disease. Right Ventricle: The right ventricle is normal in size and function. Atria: Both atria are normal in size. The interatrial septum grossly appears intact with no obvious evidence for an atrial septal defect. Mitral Valve: An annuloplasty ring is noted in the mitral position. The mitral valve mean gradient is 4 mmHg. There is no mitral regurgitation noted. Aortic Valve: The aortic valve is normal in structure and function. No aortic regurgitation is present. Tricuspid Valve: The tricuspid valve is normal in structure and function. There is a trace or physiologic amount of tricuspid regurgitation. Pulmonary artery pressures cannot be estimated because of the lack of a measurable TR jet velocity. Pulmonic Valve: The pulmonic valve is normal in structure and function. There is no pulmonic valvular regurgitation. Great Vessels: The aortic root is normal size. The dimensions of the ascending aorta are normal. The IVC is of normal diameter and collapses greater than 50% with a sniff. This suggests a low right atrial pressure of 3 mm Hg. Pericardium/ Pleura There is no pericardial effusion. There is no pleural effusion. MMode/2D Measurements & Calculations LVIDd: 4.5 cm LVOT diam: 2.0 cm LVIDs: 2.9 cm Ao root diam: 2.8 cm FS: 35.6 % asc Aorta Diam: 2.9 cm IVSd: 0.80 cm LVPWd: 1.0 cm LV haas. diameter/BSA (cm/m^2): 2.7 LV sys. diameter/BSA (cm/m^2): 1.7 LA dimension: 3.5 cm RA long axis: 4.3 cm LA A2 area: 16.2 cm2 LA A4 area: 14.5 cm2 LA length (vol): 5.1 cm LA vol: 39.2 ml LA vol index: 23.2 ml/m2 TAPSE_phl: 1.8 cm Doppler Measurements & Calculations Ao V2 max: 99.0 cm/sec LVOT Max Dale: 69.2 cm/sec Ao V2 mean: 72.5 cm/sec LV V1 max P.9 mmHg Ao max P.0 mmHg LV V1 VTI: 18.6 cm Ao mean P.0 mmHg MICHAELLE(I,D): 2.8 cm2 Ao V2 VTI: 21.1 cm MICHAELLE(V,D): 2.2 cm2 sev ratio: 0.88 MICHAELLE indexed to BSA (cm^2/m^2): 1.6 MV E max dale: 96.0 cm/sec MV V2 mean: 95.6 cm/sec MV A max dale: 126.0 cm/sec MV mean P.0 mmHg MV E/A: 0.76 MV V2 VTI: 31.0 cm Med Peak E' Dale: 4.8 cm/sec E/E' med: 19.8 Lat Peak E' Dale: 5.3 cm/sec E/E' lat: 18.0 E/e' average: 18.9 MV dec time: 0.24 sec MVA(VTI): 1.9 cm2 SV(LVOT): 58.4 ml AV VR_phl: 0.70 MICHAELLE(VTI)/BSA_phl: 1.6 MV P1/2t-pr_phl: 69.0 msec Reading Physician:10:38 AM
== END ==
PROVIDERS: PCP Internal Medicine; Referring Provider Internal Medicine Cardiovascular Disease; Visit Provider Internal Medicine Cardiovascular Disease
DX: I10 Essential (primary) hypertension (principal); Z98.890 Other specified postprocedural states
CPT/HCPCS: 93306

== ENCOUNTER → 2021-11-23 10:55 | Outpatient (CLI) | payer OTHER, SELFPAY ==
[2021-11-23 11:58] LABS: Add Manual Diff / Slide Review NO; Basophils Absolute Auto 0 /uL (0-100); Basophils Percent Auto 0.5 % (0-2); Eosinophils Absolute Auto 100 /uL (0-450); Eosinophils Percent Auto 0.9 % (2-4); Hematocrit 34.1 % (36-46); Hemoglobin 11.8 g/dL (12.0-16.0); Lymphocytes Absolute Auto 1900 /uL (1100-4500); Lymphocytes Percent Auto 21.9 % (25-40); Mean Corpuscular HGB Conc 34.8 % (30-36); Mean Corpuscular Hemoglobin 33.2 PG (26-34); Mean Corpuscular Volume 95.5 fL (80-100); Monocytes Absolute Auto 500 /uL (0-900); Monocytes Percent Auto 5.5 % (3-14); Neutrophils Absolute Auto 6200 /uL (1500-7000); Neutrophils Percent Auto 71.2 % (50-75); Platelet Count 255 X10^3/uL (150-400); Red Blood Cell Count 3.57 X10^6/uL (4.0-5.2); Red Cell Distribution Width 12.8 % (11.6-14.8); White Blood Cell Count 8.6 X10^3/uL (4.5-11.0)
[2021-11-23 12:07] LABS: Albumin 3.9 g/dL (3.5-5.0); BUN Creatinine Ratio 28.4 (6-22); Blood Urea Nitrogen 38 mg/dL (7-17); Calcium 8.8 mg/dL (8.4-10.2); Carbon Dioxide 26 mmol/L (22-32); Chloride 101 mmol/L (98-107); Estimated Glomerular Filt Rate 42 mL/min (>60); Glucose 137 mg/dL (80-110); HEMOLYSIS < 15 (0-50); Phosphorous 3.9 mg/dL (2.8-4.1); Potassium 4.5 mmol/L (3.4-5.1); Sodium 135 mmol/L (137-145)
[2021-11-23 15:58] LABS: Vitamin D 25 Hydroxy (D3) 85.3 ng/mL (30.0-100.0)
[2021-11-25 06:33] LABS: Parathyroid Hormone Int 38 pg/mL (15-65)
== END ==
PROVIDERS: PCP Internal Medicine; Referring Provider Internal Medicine Nephrology; Visit Provider Internal Medicine Nephrology
DX: N18.32 Chronic kidney disease, stage 3b (principal)
CPT/HCPCS: 36415; 80069; 82306; 83970; 85025

== ENCOUNTER → 2021-12-05 11:49 | Outpatient (CLI) | payer OTHER, SELFPAY ==
--- NOTE | 2021-12-05 | DI.MG.S_ITS ---
BILATERAL DIGITAL SCREENING MAMMOGRAM 3D/2D WITH CAD: 12/05/2021 CLINICAL: Routine screening. Family history of breast cancer. Comparison is made to exams dated: 11/10/2020 mammogram, 10/19/2019 mammogram, and 05/28/2018 mammogram - [facility]. Both breasts are heterogeneously dense, which may obscure small masses (category c / 51-75% glandular tissue). Current study was also evaluated with a Computer Aided Detection (CAD) system. There are benign calcifications in both breasts. No significant masses, calcifications, or other findings are seen in either breast. There has been no significant interval change. IMPRESSION: BENIGN There is no mammographic evidence of malignancy. A 1 year screening mammogram is recommended. Based on the Tyrer Cuzick model (a risk assessment model) the patient's lifetime risk is 8.7% and her 10 year risk is 8.1%. According to the ACR, ACS, and NCCN guidelines, an annual breast MRI exam along with mammogram is recommended if the patient's lifetime risk is 20% or greater. This exam was interpreted at Station ID: [id number]. NOTE: For mammograms, a report in lay terms will be sent to the patient. Approximately 15% of breast malignancies will not be visualized mammographically. In the management of a palpable breast mass, a negative mammogram must not discourage biopsy of a clinically suspicious lesion. Electronically Signed By: Enrique hartmann/trae:12/06/2021 07:31:19 letter sent: Normal Exam ACR BI-RADS Category 2: Benign Finding(s) 3342F
== END ==
PROVIDERS: PCP Internal Medicine; Referring Provider Internal Medicine; Visit Provider Internal Medicine
DX: Z12.31 Encounter for screening mammogram for malignant neoplasm of breast (principal); Z80.3 Family history of malignant neoplasm of breast
CPT/HCPCS: 77063; 77067

== ENCOUNTER → 2022-02-05 14:58 | Outpatient (CLI) | payer OTHER, SELFPAY ==
--- NOTE | 2022-02-05 15:00 | DI.RAD.S_ITS ---
PROCEDURE: XR DEXA AXIAL SKELETON INDICATIONS: Asymptomatic menopausal state COMPARISON: None. FINDINGS: This blank DEXA report has been sent in error by the PACS system. The correct and complete report will be forthcoming in 1-2 days. Thank you for your patience and understanding. Dictated by: Theresa León MD, PhD on 02/06/2022 at 13:20 Approved by: Theresa León MD, PhD on 02/06/2022 at 13:20
== END ==
PROVIDERS: PCP Internal Medicine; Referring Provider Internal Medicine; Visit Provider Internal Medicine
DX: Z78.0 Asymptomatic menopausal state (principal); Z13.820 Encounter for screening for osteoporosis; M85.852 Other specified disorders of bone density and structure, left thigh; Z92.23 Personal history of estrogen therapy
CPT/HCPCS: 77080

== ENCOUNTER → 2022-04-09 13:48 | Outpatient (CLI) | payer MEDICARE, SELFPAY ==
[2022-04-09 14:54] LABS: Hemoglobin A1C% w Est Avg Glu 6.3 % (4.0-6.0)
[2022-04-09 15:06] LABS: Alanine Aminotransferase 30 IU/L (<35); Albumin 3.7 g/dL (3.5-5.0); Albumin Globulin Ratio 1.3 (1.0-2.8); Alkaline Phosphatase 52 U/L (38-126); Aspartate Aminotransferase 28 IU/L (14-36); BUN Creatinine Ratio 23.7 (6-22); Bilirubin Total 0.4 mg/dL (0.2-1.3); Blood Urea Nitrogen 28 mg/dL (7-17); Calcium 9.1 mg/dL (8.4-10.2); Carbon Dioxide 26 mmol/L (22-32); Chloride 102 mmol/L (98-107); Estimated Glomerular Filt Rate 48 mL/min (>60); Globulin 2.9 g/dL (1.7-4.1); Glucose 125 mg/dL (80-110); HEMOLYSIS < 15 (0-50); Potassium 4.6 mmol/L (3.4-5.1); Sodium 136 mmol/L (137-145); Total Protein 6.6 g/dL (6.3-8.2)
[2022-04-09 16:16] LABS: Creatinine Urine Random 89.6 mg/dL
[2022-04-09 16:20] LABS: Microalbumi Creatinin Ratio Ur 7.8 ug/mg CR (<30); Microalbumin Urine Random 0.7 mg/dL (0-1.6)
== END ==
PROVIDERS: PCP Internal Medicine; Referring Provider Internal Medicine Endocrinology, Diabetes & Metabolism; Visit Provider Internal Medicine Endocrinology, Diabetes & Metabolism
DX: E11.65 Type 2 diabetes mellitus with hyperglycemia (principal); Z79.4 Long term (current) use of insulin
CPT/HCPCS: 36415; 80053; 82043; 82570; 83036

== ENCOUNTER → 2022-06-05 10:38 | Outpatient (CLI) | payer MEDICARE, SELFPAY ==
[2022-06-05 11:32] LABS: Albumin 3.9 g/dL (3.5-5.0); BUN Creatinine Ratio 28.1 (6-22); Blood Urea Nitrogen 41 mg/dL (7-17); Calcium 9.2 mg/dL (8.4-10.2); Carbon Dioxide 26 mmol/L (22-32); Chloride 102 mmol/L (98-107); Estimated Glomerular Filt Rate 38 mL/min (>60); Glucose 104 mg/dL (80-110); HEMOLYSIS < 15 (0-50); Phosphorous 4.6 mg/dL (2.8-4.1); Sodium 134 mmol/L (137-145)
== END ==
PROVIDERS: PCP Internal Medicine; Referring Provider Internal Medicine Nephrology; Visit Provider Internal Medicine Nephrology
DX: N18.32 Chronic kidney disease, stage 3b (principal)
CPT/HCPCS: 36415; 80069

== ENCOUNTER → 2022-07-24 14:31 | Outpatient (CLI) | payer MEDICARE, SELFPAY ==
[2022-07-24 15:33] LABS: Alanine Aminotransferase 25 IU/L (<35); Albumin 3.9 g/dL (3.5-5.0); Albumin Globulin Ratio 1.3 (1.0-2.8); Alkaline Phosphatase 68 U/L (38-126); Aspartate Aminotransferase 23 IU/L (14-36); BUN Creatinine Ratio 31.7 (6-22); Bilirubin Total 0.4 mg/dL (0.2-1.3); Blood Urea Nitrogen 44 mg/dL (7-17); Carbon Dioxide 22 mmol/L (22-32); Chloride 104 mmol/L (98-107); Cholesterol 168 mg/dL (140-199); Estimated Glomerular Filt Rate 40 mL/min (>60); Globulin 2.9 g/dL (1.7-4.1); Glucose 164 mg/dL (80-110); HDL Cholesterol 65 mg/dL (40-60); HEMOLYSIS < 15 (0-50); LDL Cholesterol Calculated 59 mg/dL (<100); Potassium 4.7 mmol/L (3.4-5.1); Sodium 134 mmol/L (137-145); Total Protein 6.8 g/dL (6.3-8.2); Triglycerides 221 mg/dL (35-150)
[2022-07-24 16:15] LABS: Creatinine Urine Random 122.9 mg/dL
[2022-07-24 16:19] LABS: Microalbumi Creatinin Ratio Ur 4.8 ug/mg CR (<30); Microalbumin Urine Random 0.6 mg/dL (0-1.6)
[2022-07-25 06:07] LABS: x Labcorp Estim. Avg Glu (eAG) 143 mg/dL (.); x Labcorp Hemoglobin A1c 6.6 % (4.8-5.6)
== END ==
PROVIDERS: PCP Internal Medicine; Referring Provider Internal Medicine Endocrinology, Diabetes & Metabolism; Visit Provider Internal Medicine Endocrinology, Diabetes & Metabolism
DX: E11.65 Type 2 diabetes mellitus with hyperglycemia (principal); Z79.4 Long term (current) use of insulin
CPT/HCPCS: 36415; 80053; 80061; 82043; 82570; 83036

== ENCOUNTER → 2022-11-12 10:02 | Outpatient (CLI) | payer MEDICARE, SELFPAY ==
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
== END ==
PROVIDERS: PCP Family Medicine; Referring Provider Family Medicine; Visit Provider Family Medicine
DX: M47.816 Spondylosis without myelopathy or radiculopathy, lumbar region (principal); M47.817 Spondylosis without myelopathy or radiculopathy, lumbosacral region; M54.50 Low back pain, unspecified
CPT/HCPCS: 72110

== ENCOUNTER → 2022-12-11 15:57 | Outpatient (CLI) | payer OTHER, SELFPAY ==
--- NOTE | 2022-12-11 | DI.MG.S_ITS ---
BILATERAL DIGITAL SCREENING MAMMOGRAM 3D/2D WITH CAD: 12/11/2022 CLINICAL: Routine screening. Family history of breast cancer. Comparison is made to exams dated: 12/05/2021 mammogram, 11/10/2020 mammogram, 10/19/2019 mammogram, and 05/28/2018 mammogram - [facility]. Both breasts are heterogeneously dense, which may obscure small masses (category c / 51-75% glandular tissue). Current study was also evaluated with a Computer Aided Detection (CAD) system. There is an asymmetry in the right breast middle depth central to the nipple seen on the craniocaudal view only. This is more prominent. There is architectural distortion in the left breast at 9 o'clock anterior depth. No other significant masses or calcifications are seen in either breast. IMPRESSION: INCOMPLETE: NEEDS ADDITIONAL IMAGING EVALUATION The asymmetry in the right breast middle depth central to the nipple seen on the craniocaudal view only is indeterminate. The architectural distortion in the left breast at 9 o'clock anterior depth is indeterminate. Additional views with possible ultrasound are recommended. Based on the Tyrer Cuzick model (a risk assessment model) the patient's lifetime risk is 8.3% and her 10 year risk is 8.3%. According to the ACR, ACS, and NCCN guidelines, an annual breast MRI exam along with mammogram is recommended if the patient's lifetime risk is 20% or greater. This exam was interpreted at Station ID: [id number]. NOTE: For mammograms, a report in lay terms will be sent to the patient. Approximately 15% of breast malignancies will not be visualized mammographically. In the management of a palpable breast mass, a negative mammogram must not discourage biopsy of a clinically suspicious lesion. Electronically Signed By: Addy Mas M.D. [facility] [place]/:12/12/2022 07:18:34 letter sent: Additional Imaging Needed ACR BI-RADS Category 0: Incomplete 3340F
[2022-12-11 18:03] LABS: Add Manual Diff / Slide Review NO; Basophils Absolute Auto 0 /uL (0-100); Basophils Percent Auto 0.6 % (0-2); Eosinophils Absolute Auto 100 /uL (0-450); Eosinophils Percent Auto 1.9 % (2-4); Hematocrit 33.2 % (36-46); Hemoglobin 11.4 g/dL (12.0-16.0); Lymphocytes Absolute Auto 2200 /uL (1100-4500); Lymphocytes Percent Auto 29.3 % (25-40); Mean Corpuscular HGB Conc 34.4 % (30-36); Mean Corpuscular Hemoglobin 33.2 PG (26-34); Mean Corpuscular Volume 96.4 fL (80-100); Monocytes Absolute Auto 500 /uL (0-900); Monocytes Percent Auto 7.1 % (3-14); Neutrophils Absolute Auto 4700 /uL (1500-7000); Neutrophils Percent Auto 61.1 % (50-75); Platelet Count 268 X10^3/uL (150-400); Red Blood Cell Count 3.44 X10^6/uL (4.0-5.2); Red Cell Distribution Width 12.9 % (11.6-14.8); White Blood Cell Count 7.6 X10^3/uL (4.5-11.0)
[2022-12-11 18:37] LABS: Vitamin D 25 Hydroxy (D3) 70.7 ng/mL (30.0-100.0)
[2022-12-11 19:22] LABS: Albumin 3.8 g/dL (3.5-5.0); BUN Creatinine Ratio 32.3 (6-22); Blood Urea Nitrogen 42 mg/dL (7-17); Calcium 9.4 mg/dL (8.4-10.2); Carbon Dioxide 23 mmol/L (22-32); Chloride 102 mmol/L (98-107); Estimated Glomerular Filt Rate 43 mL/min (>60); Glucose 155 mg/dL (80-110); HEMOLYSIS < 15 (0-50); Potassium 4.6 mmol/L (3.4-5.1); Sodium 133 mmol/L (137-145)
[2022-12-11 20:00] LABS: Creatinine Urine Random 95.2 mg/dL
[2022-12-11 20:07] LABS: Microalbumi Creatinin Ratio Ur 7.3 ug/mg CR (<30); Microalbumin Urine Random 0.7 mg/dL (0-1.6)
[2022-12-14 07:54] LABS: Parathyroid Hormone Int 29 pg/mL (15-65)
== END ==
PROVIDERS: PCP Family Medicine; Referring Provider Internal Medicine Nephrology; Visit Provider Internal Medicine Nephrology
DX: Z12.31 Encounter for screening mammogram for malignant neoplasm of breast (principal); N18.32 Chronic kidney disease, stage 3b; N18.31 Chronic kidney disease, stage 3a; Z80.3 Family history of malignant neoplasm of breast; N64.89 Other specified disorders of breast
CPT/HCPCS: 36415; 77063; 77067; 80069; 82043; 82306; 82570; 83970; 85025

== ENCOUNTER → 2022-12-31 10:09 | Outpatient (CLI) | payer OTHER, SELFPAY ==
--- NOTE | 2022-12-31 10:10 | DI.US.S_ITS ---
LIMITED ULTRASOUND OF LEFT BREAST AND AXILLA: 12/31/2022 CLINICAL: Patient returns today to evaluate a focal asymmetry in the left breast. Comparison is made to exams dated: 12/31/2022 mammogram, 12/11/2022 mammogram, 12/05/2021 mammogram, 11/10/2020 mammogram, 10/19/2019 mammogram, and 05/28/2018 mammogram - [facility]. Ultrasound of the left breast 8 o'clock, and axilla regions was performed. There is a 1.2 cm x 1.0 cm x 0.9 cm irregular hypoechoic mass with a spiculated margin in the left breast at 8 o'clock, 2 cm from the nipple. This correlates with mammographic mass. Color flow imaging demonstrates that there is vascularity present. No abnormal lymph nodes are seen in the left axilla. IMPRESSION: SUSPICIOUS OF MALIGNANCY Left breast 1.2 cm spiculated mass at 8 o'clock. Finding is suspicious. Recommend ultrasound guided core biopsy. Findings and recommendations were discussed with the patient by Dr. Mas at the time of imaging completion. This exam was interpreted at Station ID: [id number]. Electronically Signed By: Mary Gunter M.D., PH.D eb/:12/31/2022 11:41:36 letter sent: Biopsy Required Ultrasound BI-RADS: 4 Suspicious for malignancy
--- NOTE | 2022-12-31 10:10 | DI.MG.S_ITS ---
BILATERAL DIGITAL DIAGNOSTIC MAMMOGRAM 3D/2D: 12/31/2022 CLINICAL: Additional evaluation requested from prior study. Comparison is made to exams dated: 12/11/2022 mammogram, 12/05/2021 mammogram, and 11/10/2020 mammogram - [facility]. Both breasts are heterogeneously dense, which may obscure small masses (category c / 51-75% glandular tissue). Right breast: The asymmetry seen on recent screening mammogram did not persist with additional imaging and likely represents superimposition of normal breast tissue. No other significant masses or calcifications are seen in the breast. Left breast: There is a 1.3 cm irregular mass with a spiculated margin in the left breast lower inner quadrant at middle depth. This corresponds to architectural distortion seen on recent screening mammogram. No other significant masses or calcifications are seen in the breast. IMPRESSION: INCOMPLETE: NEEDS ADDITIONAL IMAGING EVALUATION 1) Right breast probable superimposition of normal breast tissue. Recommend further evaluation with targeted right breast ultrasound, which will immediately follow this exam. 2) Left breast 1.3 cm spiculated mass lower inner quadrant at middle depth. Recommend further evaluation with targeted left breast ultrasound, which will immediately follow this exam. Based on the Tyrer Cuzick model (a risk assessment model) the patient's lifetime risk is 8.3% and her 10 year risk is 8.3%. According to the ACR, ACS, and NCCN guidelines, an annual breast MRI exam along with mammogram is recommended if the patient's lifetime risk is 20% or greater. This exam was interpreted at Station ID: [id number]. NOTE: For mammograms, a report in lay terms will be sent to the patient. Approximately 15% of breast malignancies will not be visualized mammographically. In the management of a palpable breast mass, a negative mammogram must not discourage biopsy of a clinically suspicious lesion. Electronically Signed By: Mary Gunter M.D., PH.D eb/:12/31/2022 11:16:42 ACR BI-RADS Category 0: Incomplete 3340F
--- NOTE | 2022-12-31 10:10 | DI.US.S_ITS ---
LIMITED ULTRASOUND OF RIGHT BREAST: 12/31/2022 CLINICAL: Patient returns today to evaluate a focal asymmetry in the right breast. Comparison is made to exams dated: 12/31/2022 mammogram, 12/11/2022 mammogram, 12/05/2021 mammogram, 11/10/2020 mammogram, 10/19/2019 mammogram, and 05/28/2018 mammogram - [facility]. Ultrasound of the right breast 4-6 o'clock region was performed. Confirmatory ultrasound demonstrates no sonographic abnormality at 6 o'clock, 5 cm from the nipple. IMPRESSION: NEGATIVE Superimposition of normal breast tissue with confirmatory negative ultrasound. No sonographic or mammographic evidence of malignancy. Recommend return to annual mammogram screening. Findings and recommendations were discussed with the patient by Dr. Mas at the time of imaging completion. This exam was interpreted at Station ID: [id number]. Electronically Signed By: Mary Gunter M.D., PH.D eb/:12/31/2022 11:19:34 Ultrasound BI-RADS: 1 Negative
== END ==
PROVIDERS: PCP Family Medicine; Referring Provider Family Medicine; Visit Provider Family Medicine
DX: R92.8 Other abnormal and inconclusive findings on diagnostic imaging of breast (principal); N63.24 Unspecified lump in the left breast, lower inner quadrant
CPT/HCPCS: 76642; 77066; G0279

== ENCOUNTER → 2023-01-21 13:43 | Outpatient (CLI) | payer OTHER, SELFPAY ==
--- NOTE | 2023-01-21 | PATH_ITS ---
[facility] Accession Number: [id number] No. of containers..01 Tissue . 01 Material submitted: . breast - LEFT BREAST 8:00 2CMFN MASS . 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 Nuclear pleomorphism: Score 2. Mitotic rate: Score 1. Overall grade: Grade 1. Largest invasive focus in this limited biopsy sample: At least 5 mm. Ductal carcinoma in situ: Not identified. Lymphovascular invasion: Not identified. Microcalcifications: Not identified. Breast biomarker studies: will be performed and the results reported as an addendum. [facility] 01/23/2023 1353 Local . 01 Comment: Dr. Valle also reviewed this case and agrees with the diagnosis. Dr. Mary Jo Hartmann discussed preliminary results with María in Dr. Ayesha Mendez' office on 01/23/2023 at 11:38 AM. . 01 Electronically signed: . Mary Jo Hartmann MD, Pathologist NPI- [id number] . 01 Gross description: . Received one formalin-filled container, labeled with the patient's name and designated left breast 8 o'clock, 2 cm FN mass. The specimen is removed from plastic filter. Part of sample loose in container. Consists of multiple yellow-almanza to almanza-restrepo portions of soft tissue which range in size from 0.3 x 0.3 x 0.2 cm to 1.0 x 0.2 x 0.2 cm. All fragments are totally submitted in one cassette. Possible collection date and time per requisition: 01/21/2023 at 1452. Total fixation time: Approximately 14 hours. (DC:[id number]) /FRR 01/22/2023 0328 Local . 01 Pathologist provided ICD-10: C50.912 . 01 CPT . 769085, 171010, 027648, [id number] Performed at: 01 [facility] [address] [place] [address], [place], [place] [id number] MD Michael Shelton MD Phone: [phone]
--- NOTE | 2023-01-21 | DI.MG.S_ITS ---
UNILATERAL LEFT DIGITAL DIAGNOSTIC MAMMOGRAM 3D/2D POST-EXCISIONAL BIOPSY: 01/21/2023 CLINICAL: Post Clip. Comparison is made to exams dated: 12/31/2022 mammogram, 12/11/2022 mammogram, and 12/05/2021 mammogram - [facility]. The left breast is heterogeneously dense, which may obscure small masses (category c / 51-75% glandular tissue). There is a marker clip in the appropriate position in the left breast at 9 o'clock posterior depth 2 cm from the nipple. This marker clip placement is at the biopsy site. IMPRESSION: POST PROCEDURE MAMMOGRAM FOR MARKER PLACEMENT There was a successful marker clip placement in the left breast posterior depth. Based on the Tyrer Cuzick model (a risk assessment model) the patient's lifetime risk is 8.3% and her 10 year risk is 8.3%. According to the ACR, ACS, and NCCN guidelines, an annual breast MRI exam along with mammogram is recommended if the patient's lifetime risk is 20% or greater. This exam was interpreted at Station ID: [id number]. NOTE: For mammograms, a report in lay terms will be sent to the patient. Approximately 15% of breast malignancies will not be visualized mammographically. In the management of a palpable breast mass, a negative mammogram must not discourage biopsy of a clinically suspicious lesion. Electronically Signed By: Sonny hdez/trae:01/23/2023 10:16:35 ACR BI-RADS Category Post-procedure mammogram for marker placement
--- NOTE | 2023-01-21 13:44 | DI.US.S_ITS ---
PROCEDURE: US BX BREAST PERC W VAC DEVICE COMPARISON: None. INDICATIONS: mass noted on left breast US and mammogram FINDINGS: IMPRESSION: Dictated by: Sonny Kapadia M.D. on 01/23/2023 at 10:16 Approved by: Sonny Kapadia M.D. on 01/23/2023 at 10:17
--- NOTE | 2023-01-21 14:06 | DI.US.S_ITS ---
Patient Name: IQRA GALLARDO date: 1945 Sex: F Attending Physician: Vanessa Indications: Date: 01/25/2023 11:17 At the request of: RANDAL AVENDAÑO Procedure: US bx breast perc w vac device ULTRASOUND GUIDED BIOPSY LEFT BREAST USING VACUUM DEVICE WITH MARKING DEVICE INSERTED AND POST MAMMOGRAPHIC IMAGING AND RADIOGRAPHIC SPECIMEN IMAGIN01/21/2023 CLINICAL: Left breast mass. PATIENT CONSENT: Risks (minor bleeding, infection, vasovagal reaction and repeat procedure), benefits and alternatives were explained to the patient and written informed consent was obtained. Correlation is made to exams dated: 12/31/2022 ultrasound, 12/31/2022 mammogram, 12/11/2022 mammogram, and 12/05/2021 mammogram - [facility]. An ultrasound guided biopsy using real-time ultrasound was performed for the irregular shaped mass located in the left breast at 8 o'clock posterior depth. The skin was prepped in the usual manner. A biopsy needle was placed adjacent to the abnormality under ultrasound guidance. Once the needle was documented to be in the correct location, a specimen was obtained using a vacuum assisted device. A clip was inserted into the biopsy cavity. Post procedure mammographic imaging demonstrates partial removal of the abnormality. The specimen was sent to the laboratory for pathological analysis. IMPRESSION: ULTRASOUND GUIDED BIOPSY MALIGNANT Ultrasound guided biopsy of the mass in the left breast at 8 o'clock posterior depth was successful. Pathology indicates malignant invasive ductal carcinoma (ID). Pathology results are concordant with imaging findings. A surgical/oncologic consultation is recommended. Results and recommendations will be communicated to the ordering provider's office. Continued Report - Page 2 of 2 Patient Name: IQRA GALLARDO date: 1945 Sex: F Attending Physician: Vanessa Indications: Date: 01/25/2023 11:17 At the request of: RANDAL AVENDAÑO Procedure: US bx breast perc w vac device This exam was interpreted at Station ID: [id number]. Sonny hdez,vy/:01/25/2023 11:17:41
--- NOTE | 2023-01-31 14:10 | PC.NURSE ---
[place] [facility] [place] Aby ACKERMAN [place] [facility] [place]
== END ==
PROVIDERS: PCP Family Medicine; Referring Provider Family Medicine; Visit Provider Family Medicine
DX: C50.312 Malignant neoplasm of lower-inner quadrant of left female breast (principal); Z17.0 Estrogen receptor positive status [ER+]
CPT/HCPCS: 19083; 77065

== ENCOUNTER → 2023-02-19 14:03 | Outpatient (CLI) | payer OTHER, SELFPAY ==
[2023-02-19 15:44] LABS: Hemoglobin A1C% w Est Avg Glu 6.3 % (4.0-6.0)
[2023-02-19 16:07] LABS: BUN Creatinine Ratio 29.1 (6-22); Blood Urea Nitrogen 41 mg/dL (7-17); Calcium 9.5 mg/dL (8.4-10.2); Carbon Dioxide 25 mmol/L (22-32); Chloride 103 mmol/L (98-107); Estimated Glomerular Filt Rate 39 mL/min (>60); Glucose 133 mg/dL (80-110); HEMOLYSIS < 15 (0-50); Potassium 4.9 mmol/L (3.4-5.1); Sodium 133 mmol/L (137-145)
[2023-02-19 16:34] LABS: Creatinine Urine Random 98.2 mg/dL
[2023-02-19 16:42] LABS: Microalbumin Urine Random < 0.6 mg/dL (0-1.6)
== END ==
PROVIDERS: PCP Family Medicine; Referring Provider Internal Medicine Endocrinology, Diabetes & Metabolism; Visit Provider Internal Medicine Endocrinology, Diabetes & Metabolism
DX: E11.65 Type 2 diabetes mellitus with hyperglycemia (principal); Z79.4 Long term (current) use of insulin
CPT/HCPCS: 36415; 80048; 80061; 82043; 82570; 83036

== ENCOUNTER → 2023-02-20 07:47 | Outpatient (CLI) | payer OTHER, SELFPAY ==
[2023-02-20 09:05] LABS: Cholesterol 161 mg/dL (140-199); HDL Cholesterol 63 mg/dL (40-60); LDL Cholesterol Calculated 81 mg/dL (<100); Triglycerides 84 mg/dL (35-150)
== END ==
PROVIDERS: PCP Family Medicine; Referring Provider Internal Medicine Endocrinology, Diabetes & Metabolism; Visit Provider Internal Medicine Endocrinology, Diabetes & Metabolism
DX: E11.65 Type 2 diabetes mellitus with hyperglycemia (principal)
CPT/HCPCS: 36415; 80061

== ENCOUNTER → 2023-03-28 13:06 | Outpatient (CLI) | payer MEDICARE, SELFPAY ==
--- NOTE | 2023-03-28 13:08 | DI.US.S_ITS ---
ULTRASOUND OF LEFT AXILLA: 03/28/2023 CLINICAL: Oncology request for left axillary scan prior to radiation therapy, left breast cancer. Comparison is made to exams dated: 01/21/2023 ultrasound biopsy, 01/21/2023 mammogram, 12/31/2022 ultrasound, 12/31/2022 ultrasound, 12/31/2022 mammogram, and 12/11/2022 mammogram - [facility]. Color flow and real-time ultrasound of the left axilla were performed. Houser scale images of the real-time examination were reviewed. Normal morphology lymph nodes are seen in the left axilla measuring 0.4-0.8cm. IMPRESSION: NEGATIVE Normal morphology lymph nodes are seen in the left axilla measuring 0.4-0.8cm. Clinical followup recommended for malignancy history. This exam was interpreted at Station ID: [id number]. Electronically Signed By: Alejandro Brownlee M.D. lc/:03/28/2023 14:13:56 Ultrasound BI-RADS: 1 Negative
== END ==
PROVIDERS: PCP Family Medicine; Referring Provider Radiology Radiation Oncology; Visit Provider Radiology Radiation Oncology
DX: C50.212 Malignant neoplasm of upper-inner quadrant of left female breast (principal); Z17.0 Estrogen receptor positive status [ER+]
CPT/HCPCS: 76882

== ENCOUNTER → 2023-04-12 07:05 | Outpatient (CLI) | payer MEDICARE, SELFPAY ==
--- NOTE | 2023-04-12 07:06 | DI.MRI.S_ITS ---
BREAST MRI OF BOTH BREASTS: 04/12/2023 CLINICAL: Breast cancer. TECHNIQUE: The patient was placed prone in a dedicated breast imaging coil. Precontrast axial STIR and 3D FLASH without fat saturation sequences were obtained. Both before and after bolus injection of contrast, sequential 1-minute axial 3D FLASH with fat saturation sequences for 3 time points, with subtraction images and maximum intensity projections (MIP's) generated. Delayed sagittal FLASH images with fat saturation were also obtained. Computer-aided detection, including computer algorithm analysis of MRI image data for lesion detection and characterization, pharmacokinetic analysis, with further physician review for interpretation, was performed. COMPARISON: [facility], , MM DIAGNOSTIC MAMMO BI, 12/31/2022, 10:28. [facility], US, US BX BREAST PERC W VAC DEVICE, 01/21/2023, 14:06. [facility], , US BREAST LT LIMITED, 12/31/2022, 10:53. Image quality: Excellent. There is mild background parenchymal enhancement. There is heterogeneously dense fibroglandular tissue in the bilateral breast. Right breast: No suspicious mass, non-mass enhancement, or architectural distortion. No skin or nipple abnormalities. No axillary or internal mammary chain adenopathy. Left breast: There is an ill-defined, heterogeneously enhancing region in the left breast middle depth measuring approximately 0.7 cm in transverse dimension and approximately 2.1 cm in AP dimension and 1.5 cm in craniocaudal dimension (53/series 18). There is an oblong rim enhancing fluid fluid collection extending slightly anteromedially with overlying skin changes. This fluid tract measures approximately 4.4 cm in AP dimension (55/series 12) and 1.0 cm in transverse dimension (50/series 12). Findings are likely related to recent biopsy. The biopsy proven malignancy likely is within the ill-defined area of enhancement described above. The mass previously measured 1.4 x 1.2 x 1.3 cm on pre biopsy ultrasound. There is a 0.7 x 0.6 cm oval enhancing mass in the posterior depth of the left breast approximately 8 cm from the nipple in slightly toward the 9 o'clock position. This demonstrates T2 hyperintensity and mixed delayed phase enhancement kinetics. This likely represents an intramammary lymph node. No skin or nipple abnormalities. Miscellaneous: Visualized portions of the upper abdomen and chest appear unremarkable. IMPRESSION: INCOMPLETE: NEEDS ADDITIONAL IMAGING EVALUATION 1. There is an area of ill-defined, heterogeneous enhancement involving the middle depth of the left breast measuring approximately 2.1 x 1.5 x 0.7 cm. There is an adjacent oblong rim enhancing fluid collection extending anteromedially with fluid-fluid levels and overlying skin changes. Findings are compatible with biopsy-proven malignancy and suspected post biopsy changes with post biopsy fluid track described above. 2. There is a 7 mm oval T2 hyperintense, enhancing mass in the posterior depth of the left breast near the 9 o'clock position, 8 cm from the nipple which likely represents an intramammary lymph node. Recommend second-look ultrasound to confirm. 3. Otherwise, no evidence for multifocal, multicentric, or contralateral disease. No axillary or internal mammary chain adenopathy identified. 4. Right breast without MRI evidence for malignancy. COMMENT: The imaging literature indicates that a negative contrast breast MRI examination has a high sensitivity and a moderate specificity for detecting and excluding invasive carcinomas to a detection threshold of 3-5 mm; nonetheless, appropriate clinical and mammographic follow-up are recommended. MRI is not sensitive for detecting DCIS (ductal carcinoma in situ) and may not detect large invasive neoplasms that show only minimal enhancement such as mucinous carcinoma. If there are suspicious calcifications or clinically worrisome palpable masses, then biopsy should still be considered. Invasive neoplasms can be hidden by co-existent and benign enhancement caused by mastitis, hormone therapy effects, radiation therapy, , and recent biopsy or surgery. False positive examinations can occur in a number of circumstances, including breasts that have recently been subject to invasive procedures and those that contain atypical ductal hyperplasia, hormonally stimulated glandular tissue, fat necrosis, or radial scars. This exam was interpreted at Station ID: [id number]. Electronically Signed By: Enrique Solis M.D. aty/:04/15/2023 18:12:33 ACR BI-RADS Category 0: Incomplete [id number]
== END ==
LOC: MRI 07:05
PROVIDERS: PCP Family Medicine; Referring Provider Radiology Radiation Oncology; Visit Provider Radiology Radiation Oncology
DX: C50.312 Malignant neoplasm of lower-inner quadrant of left female breast (principal); N63.25 Unspecified lump in the left breast, overlapping quadrants; R92.333 Mammographic heterogeneous density, bilateral breasts; Z17.0 Estrogen receptor positive status [ER+]
CPT/HCPCS: 77049; A9579

== ENCOUNTER → 2023-04-18 12:28 | Outpatient (CLI) | payer MEDICARE, SELFPAY ==
--- NOTE | 2023-04-18 | DI.US.S_ITS ---
ULTRASOUND OF LEFT BREAST: 04/18/2023 CLINICAL: Abnormal MRI. Comparison is made to exams dated: 04/12/2023 breast MRI, 03/28/2023 ultrasound, 01/21/2023 ultrasound biopsy, 01/21/2023 mammogram, 12/31/2022 ultrasound, and 12/31/2022 mammogram - [facility]. Real-time ultrasound of the left breast was performed. Houser scale images of the real-time examination were reviewed. No significant abnormalities were seen sonographically in the left breast. IMPRESSION: PROBABLY BENIGN There is no abnormality seen in the left breast to correspond with the breast MRI finding at 9 o'clock, which may have represented an intramammary node. A follow-up breast MRI in 6 months is recommended to demonstrate stability. This exam was interpreted at Station ID: [id number]. Electronically Signed By: Alejandro Brownlee M.D. lc/:04/18/2023 13:19:29 letter sent: Followup Recommended Ultrasound BI-RADS: 3 Probably benign
== END ==
PROVIDERS: PCP Family Medicine; Referring Provider Radiology Radiation Oncology; Visit Provider Radiology Radiation Oncology
DX: C50.312 Malignant neoplasm of lower-inner quadrant of left female breast (principal); Z17.0 Estrogen receptor positive status [ER+]
CPT/HCPCS: 76642

== ENCOUNTER → 2023-05-30 11:00 | Outpatient (CLI) | payer MEDICARE, SELFPAY ==
[2023-05-30 11:39] LABS: Appearance Urine UA SL CLOUDY; Bilirubin Urine UA NEGATIVE (NEGATIVE); Color Urine UA YELLOW; Glucose Urine UA NEGATIVE (Negative); Ketones Urine UA NEGATIVE (NEGATIVE); Leukocyte Esterase Urine UA TRACE (NEGATIVE); Nitrite Urine UA NEGATIVE (Negative); Occult Blood Urine UA NEGATIVE (Negative); Protein Urine UA NEGATIVE (Negative); Urobilinogen Urine UA 0.2 E.U./dL (0.2)
[2023-05-30 11:51] LABS: Add Manual Diff / Slide Review NO; Basophils Absolute Auto 0 /uL (0-100); Basophils Percent Auto 0.6 % (0-2); Eosinophils Absolute Auto 200 /uL (0-450); Eosinophils Percent Auto 2.9 % (2-4); Hematocrit 33.4 % (36-46); Hemoglobin 11.3 g/dL (12.0-16.0); Lymphocytes Absolute Auto 1000 /uL (1100-4500); Lymphocytes Percent Auto 18.9 % (25-40); Mean Corpuscular HGB Conc 33.7 % (30-36); Mean Corpuscular Hemoglobin 32.7 PG (26-34); Monocytes Absolute Auto 500 /uL (0-900); Monocytes Percent Auto 8.4 % (3-14); Neutrophils Absolute Auto 3800 /uL (1500-7000); Neutrophils Percent Auto 69.2 % (50-75); Platelet Count 217 X10^3/uL (150-400); Red Blood Cell Count 3.45 X10^6/uL (4.0-5.2); Red Cell Distribution Width 13.3 % (11.6-14.8); White Blood Cell Count 5.5 X10^3/uL (4.5-11.0)
[2023-05-30 11:54] LABS: Bacteria Urine Few (2-10); Culture Indicated Urine Specimen Cultured; RBC Urine None Seen (0-5/HPF); Squamous Epithelial Cell Urine 0-1 /HPF (0-5/HPF); Urine Volume Low Vol <10mL (spun); WBC Urine None Seen (0-5/HPF)
[2023-05-30 12:09] LABS: Creatinine Urine Random 76.9 mg/dL
[2023-05-30 12:13] LABS: Microalbumi Creatinin Ratio Ur 11.7 ug/mg CR (<30); Microalbumin Urine Random 0.9 mg/dL (0-1.6)
[2023-05-30 12:46] LABS: Albumin 3.8 g/dL (3.5-5.0); BUN Creatinine Ratio 34.8 (6-22); Blood Urea Nitrogen 46 mg/dL (7-17); Calcium 9.3 mg/dL (8.4-10.2); Carbon Dioxide 28 mmol/L (22-32); Chloride 105 mmol/L (98-107); Estimated Glomerular Filt Rate 42 mL/min (>60); Glucose 120 mg/dL (80-110); HEMOLYSIS < 15 (0-50); Iron 94 ug/dL (37-170); Phosphorous 4.2 mg/dL (2.8-4.1); Potassium 4.8 mmol/L (3.4-5.1); Sodium 135 mmol/L (137-145)
[2023-05-30 12:54] LABS: Protein (Total) Urine Random < 5 mg/dL (0-12); Protein Creatinine Ratio Urine 0.06 GRAM/24H
[2023-05-30 12:55] LABS: Total Iron Binding Capacity 205 ug/dL (265-497)
[2023-05-30 13:12] LABS: Ferritin 112 ng/mL (11-264)
[2023-05-30 16:51] LABS: Vitamin D 25 Hydroxy (D3) 85.7 ng/mL (30.0-100.0)
[2023-05-31 11:36] LABS: Parathyroid Hormone Int 32 pg/mL (15-65)
== END ==
PROVIDERS: PCP Family Medicine; Referring Provider Internal Medicine Nephrology; Visit Provider Internal Medicine Nephrology
DX: N18.32 Chronic kidney disease, stage 3b (principal); I10 Essential (primary) hypertension; Z79.4 Long term (current) use of insulin; N18.30 Chronic kidney disease, stage 3 unspecified; D63.1 Anemia in chronic kidney disease
CPT/HCPCS: 36415; 80069; 81001; 82043; 82306; 82570; 82728; 83540; 83550; 83970; 84156; 85025; 87086

== ENCOUNTER 2023-06-14 11:22 | Emergency (ER) | payer MEDICARE, SELFPAY ==
[2023-06-14 11:24] VITALS: BP 162/70; PULSE 79; RESP 18; TEMP 36.7; O2SAT 98; BMI 26.8
--- NOTE | 2023-06-14 11:47 | ED.BACK ---
HPI - Back Pain/Injury <Nancy Murphy PA-C - Last Filed: 06/14/23 15:00> General Chief Complaint: Back Pain/Injury Stated Complaint: slipped and fell on boat Time Seen by Provider: 06/14/23 11:46 Source: patient History of Present Illness HPI Narrative: 77-year-old female presents this morning for mid right-sided back pain. She was on her boat ?doing the fenders? which are the boats bumpers to prevent it from damage from the dock, when she slipped on some water striking her right back side on the stairs riser. She was able to get up on her own and she is denying any other complaints. Her main concern is for possible fracture, apparently she is followed by Dr. Butt a spine doctor for her ?curvature in her back, she has been doing some physical therapy and may start some spine injections. She is denying any numbness tingling loss of sensation, weakness, no precipitating events she recalls the complete incident and did not strike her head. She does take baby aspirin 81 mg daily. She states that she had her evaluate her and he noticed ?a small bruise?. She did apply a Lidoderm patch that she had at home which has helped, she is also taken some Tylenol. No other treatment tried. All other systems reviewed and are negative. Related Data Home Medications Medication Instructions Recorded Confirmed insulin lispro 100 unit/mL 11/22/17 06/20/23 subcutaneous solution (Humalog U-100 Insulin) semaglutide 1 mg/dose (4 mg/3 mL) 1 mg SUBCUT WEEKLY 03/14/21 06/20/23 subcutaneous pen injector (Ozempic) ascorbic acid (vitamin C) PO 11/12/22 06/20/23 aspirin 81 mg tablet,delayed 81 mg PO DAILY 11/12/22 06/20/23 release calcium carbonate 260 mg calcium 260 mg PO DAILY 11/12/22 06/20/23 (650 mg) chewable tablet cholecalciferol (vitamin D3) PO 11/12/22 06/20/23 ferrous sulfate 325 mg (65 mg 325 mg PO DAILY 11/12/22 06/20/23 iron) tablet fish oil-dha-epa PO 11/12/22 06/20/23 glucos sul [id number]-Mn PO 11/12/22 06/20/23 [Glucosamine Chondroitin] insulin detemir U-100 100 unit/mL 23 unit SUBCUT DAILY 11/12/22 06/20/23 (3 mL) subcutaneous pen (Levemir FlexPen) lactobacillus combination no.9 PO 11/12/22 06/20/23 [Adult 50 Plus Probiotic] multivitamin 1 tab PO DAILY 11/12/22 06/20/23 timolol maleate 0.5 % eye drops 1 drp EYE-BOTH DAILY 11/12/22 06/20/23 vitamin B complex (B 1 tab PO DAILY 11/12/22 06/20/23 Complex-Vitamin B12 tablet) vitamin K2 100 mcg capsule 100 mcg PO DAILY 11/29/22 06/20/23 letrozole 2.5 mg tablet 2.5 mg PO DAILY 06/20/23 06/20/23 Previous Rx's Medication Instructions Recorded atorvastatin 10 mg tablet 10 mg PO DAILY #90 tabs 06/11/23 lansoprazole 30 mg capsule,delayed 30 mg PO DAILY #90 caps 06/11/23 release lisinopril 10 mg tablet 10 mg PO DAILY #90 tabs 06/11/23 Allergies Allergy/AdvReac Type Severity Reaction Status Date / Time codeine AdvReac Mild Vomiting Verified 06/20/23 12:56 Review of Systems <Nancy Murphy PA-C - Last Filed: 06/14/23 15:00> Review of Systems Narrative: SEE HPI Patient History <Nancy Murphy PA-C - Last Filed: 06/14/23 15:00> Medical History Lumbar facet arthropathy Scoliosis Lumbar spondylosis Osteoarthritis (~2004) Shoulder pain (~2017) Osteopenia (~2021) Chronic back pain Carpal tunnel syndrome (~1991) Mumps (~1954) Measles (~1953) Chicken pox (~1952) Anemia Tinnitus Glaucoma Cataracts, bilateral History of kidney disease (~2020) GERD (gastroesophageal reflux disease) Colon polyps Mitral valve prolapse (~2006) Diabetes (~1997) Degloving injury of right hand Surgical History Anesthesia Amputation of finger (~2017) Ovarian tumor (~2003) History of carpal tunnel release of both wrists (~1991) History of tubal ligation (~1980) Status post cataract extraction and insertion of intraocular lens of right eye (~2021) Family History Father Cancer Diabetes mellitus History of heart disease Hyperlipidemia Hypertension Mother Dementia Social History household members: spouse Smoking Status: Former smoker Tobacco: How many years used: 5 alcohol intake: current (1 glass red wine nightly ) substance use type: does not use Smoking Status: Former smoker alcohol intake frequency: 0-2 drinks per day Substance Use Type: does not use Exam <Nancy Murphy PA-C - Last Filed: 06/14/23 15:00> Initial Vital Signs Initial Vital Signs: Vital Signs Temperature 98.1 F 06/14/23 11:24 Pulse Rate 79 06/14/23 11:24 Respiratory Rate 18 06/14/23 11:24 Blood Pressure 162/70 H 06/14/23 11:24 Pulse Oximetry 98 06/14/23 11:24 Oxygen Delivery Method Room Air 06/14/23 11:24 Vital signs reviewed and are normal except for slightly elevated systolic reading today. Const Other: Smiling, seated, legs are crossed, no distress. She is ambulatory. Eyes Other: Pupils are PERRLA vision is intact to fingers. Neck Other: No focal bony midline tenderness. Full active range of motion of the neck. Chest Other: Anterior chest is atraumatic. Chest wall is nontender. No discoloration, deep inspiration without difficulty, barrel hoop test is negative. Resp Other: Clear to auscultation throughout. Cardio Other: Regular rate and rhythm. Back/Spine/Pelvis Other: There is a Lidoderm patch in the right posterior between the levels of T 6 through 10. This is removed slightly and it reveals about a 1 in flat contusion. There are no breaks in the skin. She does have focal tenderness it is in the paraspinous tissues in this region. She has no focal bony midline tenderness. She does have a slight kyphotic appearance. No lumbar sacral tenderness or paraspinous tenderness. No focal deficits. Straight leg raise is negative. Full active range of motion of the hips. Skin Other: Normal color, turgor, temperature except for the small contusion noted above. Extrem Other: No focal findings to her upper or lower extremities. <Prema Dillard DO - Last Filed: 06/20/23 18:15> Initial Vital Signs Initial Vital Signs: Vital Signs Temperature 98.1 F 06/14/23 11:24 Pulse Rate 79 06/14/23 11:24 Respiratory Rate 18 06/14/23 11:24 Blood Pressure 162/70 H 06/14/23 11:24 Pulse Oximetry 98 06/14/23 11:24 Oxygen Delivery Method Room Air 06/14/23 11:24 Course <Nancy Murphy PA-C - Last Filed: 06/14/23 15:00> Orders Ordered: ED Orders 06/14/23 12:26 XR thoracic spine 3V Stat Vital Signs Vital signs: Vital Signs - 8 hr 06/14/23 11:24 Temperature 98.1 F Pulse Rate 79 Respiratory Rate 18 Blood Pressure 162/70 H Pulse Oximetry 98 Oxygen Delivery Method Room Air <Prema Dillard DO - Last Filed: 06/20/23 18:15> Orders Ordered: ED Orders 06/14/23 12:26 XR thoracic spine 3V Stat Vital Signs Vital signs: Vital Signs - 8 hr 06/14/23 11:24 Temperature 98.1 F Pulse Rate 79 Respiratory Rate 18 Blood Pressure 162/70 H Pulse Oximetry 98 Oxygen Delivery Method Room Air MDM - Back Pain/Injury <THIAGO Campbell Last Filed: 06/14/23 15:00> Imaging Data X-rays T-spine: My Impression: Deferred to radiology. Radiologist's Impression: PROCEDURE: XR THORACIC SPINE 3V INDICATIONS: fall, struck mid-right back 06/11 TECHNIQUE: 3 views of the thoracic spine were acquired. COMPARISON: None. FINDINGS: Bones: No fractures or dislocations. No suspicious bony lesions. 12 pairs of ribs are noted, and appear intact where visualized. Osteopenia with increased thoracic kyphosis. No identifiable acute thoracic compression fracture. Soft tissues: No paravertebral stripe thickening. IMPRESSION: No acute compression fracture identified. Dictated by: Afshin Cobb M.D. on 06/14/2023 at 14:13 Approved by: Afshin Cobb M.D. on 06/14/2023 at 14:13 [facility] Narrative Medical decision making narrative: No precipitating events this occurred 2 days ago. She is followed by her spine doctor. Thoracic films obtained today reveal no acute fracture or bony abnormality. Review of her previous records she had L-spine series in October 2022 which showed multiple level degenerative changes. I have asked her to follow up with her spine doctor as she normally follows, she may benefit from additional PT, I have encouraged her to use ice and of course she already has her Lidoderm patches and Tylenol. Patient was discharged prior to the official radiologic results I have phoned her and notified her of the negative results. Discharge Plan Departure Patient Disposition: Home Clinical Impression: Contusion of back Qualifiers: Encounter type: initial encounter Laterality: right Qualified Code(s): S20.221A - Contusion of right back wall of thorax, initial encounter Thoracic back pain Qualifiers: Chronicity: acute Back pain laterality: right Qualified Code(s): M54.6 - Pain in thoracic spine Instructions: Contusion Activity Restrictions/Additional Instructions: Your x-ray results from the radiologist are still pending at the time of her discharge as you opted to go home which I think is fine. You may certainly continue with the Lidoderm patches but I would like you to apply ice therapy a least 10-15 minutes at a time several times per day. Please follow-up with your orthopedic physician, please return to the ER if you have any worsening pain any new symptoms that arise or any other worrisome symptoms such as weakness, nausea vomiting numbness or tingling. I will contact you if there are any concerning findings in your x-ray. You may use Tylenol for pain as well. Prescriptions: No Action lisinopril 10 mg tablet 10 mg PO DAILY Qty: 90 3RF atorvastatin 10 mg tablet 10 mg PO DAILY Qty: 90 3RF lansoprazole 30 mg capsule,delayed release(DR/EC) 30 mg PO DAILY Qty: 90 3RF Levemir FlexPen 100 unit/mL (3 mL) insulin pen 23 unit SUBCUT DAILY Patient Comments: [NO ORIGINAL SIG] timolol maleate 0.5 % drops 1 drp EYE-BOTH DAILY aspirin 81 mg tablet,delayed release (DR/EC) 81 mg PO DAILY calcium carbonate 260 mg calcium (650 mg) tablet,chewable 260 mg PO DAILY cholecalciferol (vitamin D3) PO fish oil-dha-epa PO glucos sul [id number] [Glucosamine Chondroitin] PO multivitamin Tablet 1 tab PO DAILY ferrous sulfate 325 mg (65 mg iron) tablet 325 mg PO DAILY lactobacillus combination no.9 [Adult 50 Plus Probiotic] PO vitamin B complex [B Complex-Vitamin B12] Tablet 1 tab PO DAILY ascorbic acid (vitamin C) PO insulin lispro [Humalog U-100 Insulin] 100 unit/mL Solution Patient Comments: PRN sliding scales, uses infrequently since on ozempic Ozempic 1 mg/dose (4 mg/3 mL) pen injector 1 mg SUBCUT WEEKLY vitamin K2 100 mcg capsule 100 mcg PO DAILY letrozole 2.5 mg tablet 2.5 mg PO DAILY Referrals: Ayesha Mendez DO [Primary Care Provider] - Stand Alone Forms: Patient Portal/API ED Sign-out <Prema Dillard DO - Last Filed: 06/20/23 18:15> Cosign ED Attending Cosignature Attestation: I was available for consultation.
--- NOTE | 2023-06-14 12:26 | DI.RAD.S_ITS ---
PROCEDURE: XR THORACIC SPINE 3V INDICATIONS: fall, struck mid-right back 06/11 TECHNIQUE: 3 views of the thoracic spine were acquired. COMPARISON: None. FINDINGS: Bones: No fractures or dislocations. No suspicious bony lesions. 12 pairs of ribs are noted, and appear intact where visualized. Osteopenia with increased thoracic kyphosis. No identifiable acute thoracic compression fracture. Soft tissues: No paravertebral stripe thickening. IMPRESSION: No acute compression fracture identified. Dictated by: Afshin Cobb M.D. on 06/14/2023 at 14:13 Approved by: Afshin Cobb M.D. on 06/14/2023 at 14:13
== END 2023-06-14 14:12 | disposition home or self-care (01) ==
PROVIDERS: Emergency Provider Physician Assistant Medical; PCP Family Medicine
DX: S20.221A Contusion of right back wall of thorax, initial encounter (principal); W01.198A Fall on same level from slipping, tripping and stumbling with subsequent striking against other object, initial encounter; Y92.814 Boat as the place of occurrence of the external cause
CPT/HCPCS: 72072; 99283

== ENCOUNTER 2023-07-24 15:14 | Outpatient (CLI) | payer MEDICARE, SELFPAY ==
[2023-07-24] VITALS (9 sets, daily range): BP systolic 108–141; BP diastolic 51–71; PULSE 79–85; RESP 10–21; O2SAT 96–100
--- NOTE | 2023-07-24 15:30 | DI.RAD.S_ITS ---
PROCEDURE: PAIN L/S FACET INJ/BLK 1ST MATEO INDICATIONS: spondylosis COMPARISON: None. FINDINGS: Fluoroscopic spot filming was performed to verify placement of spinal needles at the bilateral L3 through L5 level(s), as labeled on the films. Appropriate location(s) of the needle tip(s) was confirmed by injection of iodinated contrast. IMPRESSION: Fluoroscopic guidance utilized for a bilateral medial branch block. Dictated by: Sonny Kapadia M.D. on 07/24/2023 at 18:04 Approved by: Sonny Kapadia M.D. on 07/24/2023 at 18:05
[2023-07-24] MEDS: MIDAZOLAM 2 MG/2 ML VIAL 1 MG IV (15:39)
[2023-07-24] MEDS: iopamidoL 15 ML VIAL 3 ML INJ (15:42)
[2023-07-24] MEDS: BUPIVACAINE 0.5% (PF) 10 ML VIAL 5 ML INJ (15:42)
--- NOTE | 2023-07-24 16:01 | P.PCN_ITS ---
Date/Time/Diagnoses Date of procedure: 07/24/23 Time of procedure: 16:00 Procedure Notes Physician: Hermann Martinez Total Fluoroscopy time (seconds): 19 Total sedation minutes: 13 Procedure in detail & Post-procedure care: Bilateral L3, 4, 5 Lumbar Medial Branch Blocks Indications: Marilyn is presenting for treatment of lumbar spondylosis with low back pain. Preoperative diagnosis: Lumbar spondylosis Postoperative diagnosis: Same Pre-procedure History: Patient demonstrates today moderate to severe non- radicular back pain without neurologic deficit aggravated by hyperextension yes Back pain greater than leg pain? yes Patient today has tenderness over the suspected joint(s) yes History of post-traumatic injury? no Hypertrophic arthropathy yes Back pain associated with suspected motion segment instability, hypermobility or pseudoarthrosis no Focused Examination: Ax3 Mood and affect are normal Vital Signs: VSS ASA: 3 Consent: Following review of allergies and potential side effects/complications, including, but not necessarily limited to, infection, allergic reaction, local tissue breakdown, stroke, temporary or permanent nerve injury, paralysis, and possible , the patient indicated that they understood and agreed to proceed.? An informed consent document was signed by the patient, witnessed by a nurse and placed in the patient's chart.? Additionally, other treatment options including medications and physical therapy were reviewed with the patient. All questions were answered. Site was then marked. Anesthesia: After review of previous anesthetic history and IV conscious sedation, the patient was deemed safe to proceed with today's procedure with IV conscious sedation. IV sedation was accomplished with midazolam 1 mg administered by the RN after order by Dr. Martinez. Sedation was titrated to patient comfort during the course of the procedure. Patient remained responsive to all verbal commands. Position: Prone Monitoring: NIBP, Pulse oximetry, 3 lead EKG Needle used: 22 ga 3.5 inch spinal needle Contrast: Isovue 300M Injectate: 0.5% bupivacaine 1 mL per site Procedure: The patient was brought into the procedure room and positioned into the prone position. Skin was prepped with a Chloraprep solution, allowed to air dry, and then draped in sterile fashion.? The right L4-5 and L5-S1 facet joints were visually identified with fluoroscopy. Lidocaine 1% was used to anesthetize the skin over each target destination with a 25ga needle. A 22 ga, 3.5 inch spinal needle was advanced to the location of the medial branch at the junction of the superior articular process and the transverse process at L4,5 and the base of the SAP of the sacrum using intermittent fluoroscopy in the AP view. Isovue 300M contrast 0.2ml was injected at each level outlining the medial borders for each level and the base of the SAP of the sacrum in the AP and lateral views. There was no evidence of vascular or intrathecal uptake. The above injectate was slowly injected at each target destination. The left L4-5 and L5-S1 facet joints were visually identified with fluoroscopy. Lidocaine 1% was used to anesthetize the skin over each target destination with a 25ga needle. A 22 ga, 3.5 inch spinal needle was advanced to the location of the medial branch at the junction of the superior articular process and the transverse process at L4,5 and the base of the SAP of the sacrum using intermittent fluoroscopy in the AP view. Isovue 300M contrast 0.2ml was injected at each level outlining the medial borders for each level and the base of the SAP of the sacrum in the AP and lateral views. There was no evidence of vascular or intrathecal uptake. The above injectate was slowly injected at each target destination. At the end of the procedure the needles were withdrawn and Band- Aids were applied for a dressing. Post Procedure: Patient was taken to the recovery and monitored. The patient was provided a Pain Log to continue to record the patient's response to the target- specific procedure prior to the patient's follow-up visit with the referring physician. Patient was stable upon discharge. Detailed post procedure instructions were provided. Patient was asked to call in the event of worsening pain, fever, weakness, numbness or bladder or bowel incontinence. Based on the medial branches blocked today, if the patient meets insurance criteria for radiofrequency, the treatment should result in the denervation of the bilateral L4-5 and L5-S1 facet joint nerves. We would expect to denervate a total of 4 facets during the radiofrequency ablation.
== END 2023-07-24 16:09 | disposition home or self-care (01) ==
PROVIDERS: PCP Family Medicine; Referring Provider Anesthesiology; Visit Provider Anesthesiology
DX: M47.816 Spondylosis without myelopathy or radiculopathy, lumbar region (principal)
CPT/HCPCS: 64493; 64494; 99152; J2250

== ENCOUNTER → 2023-08-19 07:37 | Outpatient (CLI) | payer MEDICARE, SELFPAY ==
[2023-08-19 08:23] LABS: Appearance Urine UA CLEAR; Bilirubin Urine UA NEGATIVE (NEGATIVE); Color Urine UA YELLOW; Glucose Urine UA NEGATIVE (Negative); Ketones Urine UA NEGATIVE (NEGATIVE); Leukocyte Esterase Urine UA 1+ (NEGATIVE); Nitrite Urine UA NEGATIVE (Negative); Occult Blood Urine UA NEGATIVE (Negative); Protein Urine UA NEGATIVE (Negative); Specific Gravity Urine UA 1.025 (1.000-1.035); Urobilinogen Urine UA 0.2 E.U./dL (0.2)
[2023-08-19 08:25] LABS: pH Urine UA 5.5 (4.5-8.0)
[2023-08-19 08:26] LABS: Bacteria Urine None Seen; Culture Indicated Urine Cult Not Indicated; RBC Urine 0-1/HPF (0-5/HPF); Renal Epithelial Cells Urine 0-1/HPF (0-1/HPF); Squamous Epithelial Cell Urine 1-5 /HPF (0-5/HPF); Transitional Epi Cells Urine 1-5/HPF (0-5/HPF); Urine Volume Low Vol <1mL unspun; WBC Urine 1-5/HPF (0-5/HPF)
[2023-08-19 08:47] LABS: Hemoglobin A1C% w Est Avg Glu 6.4 % (4.0-6.0)
[2023-08-19 09:24] LABS: Blood Urea Nitrogen 44 mg/dL (7-17); Calcium 9.5 mg/dL (8.4-10.2); Carbon Dioxide 29 mmol/L (22-32); Chloride 107 mmol/L (98-107); Cholesterol 168 mg/dL (140-199); Estimated Glomerular Filt Rate 39 mL/min (>60); Glucose 135 mg/dL (80-110); HDL Cholesterol 72 mg/dL (40-60); HEMOLYSIS < 15 (0-50); LDL Cholesterol Calculated 67 mg/dL (<100); Potassium 5.1 mmol/L (3.4-5.1); Sodium 136 mmol/L (137-145); Triglycerides 143 mg/dL (35-150)
[2023-08-19 13:42] LABS: Microalbumin Urine Random 1.8 mg/dL (0-1.6)
== END ==
LOC: LAB 07:39
PROVIDERS: PCP Family Medicine; Referring Provider Internal Medicine Endocrinology, Diabetes & Metabolism; Visit Provider Internal Medicine Endocrinology, Diabetes & Metabolism
DX: E11.65 Type 2 diabetes mellitus with hyperglycemia (principal); Z79.4 Long term (current) use of insulin
CPT/HCPCS: 36415; 80048; 80061; 81001; 82043; 82570; 83036

== ENCOUNTER → 2023-10-04 15:04 | Outpatient (CLI) | payer MEDICARE, SELFPAY ==
--- NOTE | 2023-10-04 15:06 | DI.MRI.S_ITS ---
BREAST MRI OF BOTH BREASTS: 10/04/2023 CLINICAL: Short term follow. Comparison is made to exams dated: 04/18/2023 ultrasound, 04/12/2023 breast MRI, 03/28/2023 ultrasound, 01/21/2023 ultrasound biopsy, 01/21/2023 mammogram, and 12/31/[address] [facility]. Gadolinium contrast calibrated to patient weight was injected. MRI images were obtained. Bilateral background breast enhancement is mild. INDICATIONS: left breast cancer TECHNIQUE: The patient was placed prone in a dedicated breast imaging coil. Precontrast axial STIR and 3D FLASH without fat saturation sequences were obtained. Both before and after bolus injection of contrast, sequential 1-minute axial 3D FLASH with fat saturation sequences for 3 time points, with subtraction images and maximum intensity projections (MIP's) generated. Delayed sagittal FLASH images with fat saturation were also obtained. Computer-aided detection, including computer algorithm analysis of MRI image data for lesion detection and characterization, pharmacokinetic analysis, with further physician review for interpretation, was performed. FINDINGS: Image quality: Excellent. There is mild background parenchymal enhancement. Heterogeneous fibroglandular elements are seen in both breasts. Right breast: No suspicious mass or abnormal non-mass enhancement in the right breast. No axillary or internal mammary lymphadenopathy. Left breast: Postsurgical changes are again seen in the medial aspect of the left breast middle depth, which do not appear significantly changed. Adjacent oblong peripherally enhancing fluid collection has decreased in size and demonstrates central [id number]-[id number] signal, likely a postsurgical hematoma. There is skin and trabecular thickening in the left breast likely related to posttreatment changes. Previously seen oval enhancing lesion in the left breast at the 3 o'clock position posterior depth (previously described at the 9 o'clock position) is redemonstrated and appears to have decreased in size, now measuring 5 x 3 mm compared to 7 x 6 mm previously. This finding again is most likely a benign intramammary lymph node. No new mass or postcontrast enhancement is seen. No left axillary or internal mammary lymphadenopathy. Miscellaneous: Heart is enlarged. Dependent gallstones are seen in the gallbladder without surrounding inflammatory changes. Included portions of the anterior chest wall and upper abdomen demonstrate no significant abnormality. IMPRESSION: BENIGN 1. Postsurgical and posttreatment changes are seen in the medial left breast. Peripherally enhancing postoperative collection has decreased in size when compared to the prior MRI. 2. Oval enhancing lesion in the left breast posterior depth at the 3 o'clock position has decreased in size when compared to the prior MRI. This lesion is again most likely an intramammary lymph node and is considered benign. 3. No axillary or internal mammary lymphadenopathy. BIRADS 2: Benign. Recommend annual screening mammograms. Return to annual mammogram screening schedule is recommended. This exam was interpreted at Station ID: [id number]. Electronically Signed By: Mario sotomayor/trae:10/06/2023 21:03:03 letter sent: Normal Exam ACR BI-RADS Category 2: Benign Finding(s) 3342F
== END ==
LOC: MRI 15:05
PROVIDERS: PCP Family Medicine; Referring Provider Radiology Radiation Oncology; Visit Provider Radiology Radiation Oncology
DX: C50.312 Malignant neoplasm of lower-inner quadrant of left female breast (principal); Z17.0 Estrogen receptor positive status [ER+]
CPT/HCPCS: 77049; A9579

== ENCOUNTER 2023-12-26 16:31 | Emergency (ER) | payer MEDICARE, SELFPAY ==
[2023-12-26] VITALS (7 sets, daily range): BP systolic 124–151; BP diastolic 58–67; PULSE 88–93; RESP 16–18; TEMP 36.5; O2SAT 97–98; BMI 24.5
--- NOTE | 2023-12-26 16:56 | DI.CT.S_ITS ---
PROCEDURE: CT FACIAL BONES WO CON INDICATIONS: fall/head injury TECHNIQUE: Noncontrast 2.5 mm thick axial images acquired from the mandible through the frontal sinuses, with coronal and sagittal reformatting. For radiation dose reduction, the following was used: automated exposure control, adjustment of mA and/or kV according to patient size. COMPARISON: None. FINDINGS: Image quality: Dental amalgam artifact limits evaluation of the mandible. Bone: Acute, comminuted nasal bone fractures with adjacent soft tissue edema/hematoma surrounding the periorbital and malar regions (2/70). No other acute fracture or dislocation. The tear where plates are intact. Orbits: Optic globes, intraconal/extraconal fat spaces, and extraocular muscles within normal limits. No retrobulbar mass. Vessels: Bilateral common carotid bulb calcifications. Sinuses: Visualized paranasal sinuses, mastoid air cells, and middle ear cavities are clear. Dentition: Limited evaluation due to dental amalgam artifact. Soft tissues: No other acute abnormality. IMPRESSION: Acute comminuted nasal bone fractures with associated facial soft tissue edema/hematoma. Dictated by: Singh Ayers M.D. on 12/26/2023 at 17:49 Approved by: Singh Ayers M.D. on 12/26/2023 at 17:57
--- NOTE | 2023-12-26 16:56 | DI.CT.S_ITS ---
PROCEDURE: CT HEAD/BRAIN WO CON INDICATIONS: fall/head injury TECHNIQUE: Noncontrast 4.5 mm thick angled axial sections acquired from the foramen magnum to the vertex, with coronal and sagittal reformats. For radiation dose reduction, the following was used: automated exposure control, adjustment of mA and/or kV according to patient size. COMPARISON: [facility], CT, CT HEAD WITHOUT CONTRAST, 10/01/2017, 15:31. FINDINGS: Image quality: Diagnostic. CSF spaces: Basal cisterns are patent. No extra-axial fluid collections. The ventricles are symmetric in size and shape. Brain: No intracranial bleeds or masses. There is cerebral volume loss for age, with resultant ventricular and sulcal prominence. There are periventricular and deep white matter chronic small vessel ischemic changes. There is intracranial internal carotid artery atherosclerosis. Skull and face: Acute, comminuted nasal bone fractures with overlying periorbital and malar soft tissue edema. No acute cranial fracture. Sinuses: Visualized sinuses and mastoids are clear. IMPRESSION: 1. No acute intracranial abnormality. 2. Partially identified comminuted nasal bone fractures and soft tissue edema/hematoma. Dictated by: Singh Ayers M.D. on 12/26/2023 at 17:46 Approved by: Singh Ayers M.D. on 12/26/2023 at 17:49
--- NOTE | 2023-12-26 16:56 | DI.CT.S_ITS ---
PROCEDURE: CT CERVICAL SPINE WO CON INDICATIONS: fall/head injury TECHNIQUE: Noncontrast 3 mm thick sections acquired from the skull base to the T4 level. Sagittal and coronal reformats were then constructed. For radiation dose reduction, the following was used: automated exposure control, adjustment of mA and/or kV according to patient size. COMPARISON: None. FINDINGS: Image quality: Excellent. Bones: No fractures or dislocations. Preservation of the cervical lordosis. Multilevel intervertebral disc height loss, most conspicuous at C5-C6. Multilevel facet and uncinate arthropathy. Visualized superior ribs are intact. Soft tissues: Prevertebral soft tissues are normal in thickness. No paravertebral hematomas. No apical pneumothoraces. 1 centimeter hypodense left thyroid nodule (3/43); no further follow-up necessary. IMPRESSION: No displaced fracture or traumatic subluxation. Dictated by: Singh Ayers M.D. on 12/26/2023 at 17:57 Approved by: Singh Ayers M.D. on 12/26/2023 at 17:59
[2023-12-26] MEDS: ACETAMINOPHEN 325 MG TABLET 975 MG PO (17:02)
--- NOTE | 2023-12-26 20:35 | PC.NURSE ---
Pt resting in bed, friend at bedside. Pt A&O x 3, friend reports pt acting normally. Abrasion noted to nose, turban to forehead wound. Small amt bleeding from L tearduct. Purple bruising noted to bilat undereye. Pt denies complaint. Updated to plan of care-- waiting on MD lee.
--- NOTE | 2023-12-26 23:18 | ED_ITS ---
HPI - Head Injury General Chief complaint: Head Injury Stated complaint: lac to the forehead Time Seen by Provider: 12/26/23 23:18 Source: patient Mode of arrival: Ambulatory History of Present Illness HPI Narrative: 78-year-old female who takes baby aspirin daily but no other blood thinner medications was outside at her home property, tripped, fell forward, struck forehead on hard steps, sustained laceration to her forehead, bruising and pain to her nose, bruising to periorbital areas. No loss of consciousness. No nausea or vomiting. No visual disturbances. She denies weakness numbness to her arms or legs. No difficulties walking. No low back pain. She denies injuries to her chest abdomen and pelvis. She denies pain to her upper extremities and lower extremities. Last tetanus shot 6 or more years ago Related Data Home Medications Medication Instructions Recorded Confirmed insulin lispro 100 unit/mL 11/22/17 09/17/23 subcutaneous solution (Humalog U-100 Insulin) semaglutide 1 mg/dose (4 mg/3 mL) 1 mg SUBCUT WEEKLY 03/14/21 09/17/23 subcutaneous pen injector (Ozempic) ascorbic acid (vitamin C) PO 11/12/22 09/17/23 aspirin 81 mg tablet,delayed 81 mg PO DAILY 11/12/22 09/17/23 release calcium carbonate 260 mg PO DAILY 11/12/22 09/17/23 cholecalciferol (vitamin D3) PO 11/12/22 09/17/23 ferrous sulfate 325 mg (65 mg 325 mg PO DAILY 11/12/22 09/17/23 iron) tablet fish oil-dha-epa PO 11/12/22 09/17/23 glucos sul [id number]-C-Mn PO 11/12/22 09/17/23 [Glucosamine Chondroitin] insulin detemir U-100 100 unit/mL 23 unit SUBCUT DAILY 11/12/22 09/17/23 (3 mL) subcutaneous pen (Levemir FlexPen) lactobacillus combination no.9 PO 11/12/22 09/17/23 [Adult 50 Plus Probiotic] multivitamin 1 tab PO DAILY 11/12/22 09/17/23 timolol maleate 0.5 % eye drops 1 drp EYE-BOTH DAILY 11/12/22 09/17/23 vitamin B complex (B 1 tab PO DAILY 11/12/22 09/17/23 Complex-Vitamin B12 tablet) vitamin K2 100 mcg capsule 100 mcg PO DAILY 11/29/22 09/17/23 letrozole 2.5 mg tablet 2.5 mg PO DAILY 06/20/23 09/17/23 Previous Rx's Medication Instructions Recorded atorvastatin 10 mg tablet 10 mg PO DAILY #90 tabs 06/11/23 lansoprazole 30 mg capsule,delayed 30 mg PO DAILY #90 caps 06/11/23 release lisinopril 10 mg tablet 10 mg PO DAILY #90 tabs 06/11/23 oxycodone-acetaminophen 5 mg-325 1 tab PO Q6H PRN pain #14 tabs 12/27/23 mg tablet Allergies Allergy/AdvReac Type Severity Reaction Status Date / Time codeine AdvReac Mild Vomiting Verified 09/17/23 08:24 Review of Systems Review of Systems Narrative: see HPI Patient History Medical History Lumbar facet arthropathy Scoliosis Lumbar spondylosis Osteoarthritis (~2004) Shoulder pain (~2017) Osteopenia (~2021) Chronic back pain Carpal tunnel syndrome (~1991) Mumps (~1954) Measles (~1953) Chicken pox (~1952) Anemia Tinnitus Glaucoma Cataracts, bilateral History of kidney disease (~2020) GERD (gastroesophageal reflux disease) Colon polyps Mitral valve prolapse (~2006) Diabetes (~1997) Degloving injury of right hand Surgical History Anesthesia Amputation of finger (~2017) Ovarian tumor (~2003) History of carpal tunnel release of both wrists (~1991) History of tubal ligation (~1980) Status post cataract extraction and insertion of intraocular lens of right eye (~2021) Family History Father Cancer Diabetes mellitus History of heart disease Hyperlipidemia Hypertension Mother Dementia Social History household members: spouse Smoking Status: Former smoker Tobacco: How many years used: 5 alcohol intake: current substance use type: does not use Smoking Status: Former smoker alcohol intake frequency: 0-2 drinks per day Substance Use Type: does not use Exam Narrative Exam Narrative: GENERAL: Well-developed patient, in mild distress. HEAD: Atraumatic. Normocephalic. Frontal curvilinear laceration about 6 cm, visible galea structure non-invaded, no crepitance. Ecchymoses raccoon eyes noted. EYES: Pupils equal round and reactive. Extraocular motions intact. No scleral icterus. No injection or drainage. Small laceration near right medial epicanthal crease extending toward the nose, not toward the likely lacrimal duct, about 4-5 mm ENT: Nose without bleeding, purulent drainage. Throat without erythema, tonsillar hypertrophy or exudate. Airway patent. NECK: Trachea midline. Non tender CARDIOVASCULAR: Regular rate and rhythm without murmurs, gallops, or rubs. RESPIRATORY: Clear to auscultation. Breath sounds equal bilaterally. No wheezes, rales, or rhonchi. GASTROINTESTINAL: Abdomen soft, non-tender, nondistended. EXTREMITIES: No edema or joint tenderness. Right post amputation old remote degloving injury right hand noted. Left-hand without deformity. BACK: Nontender without deformity or crepitance. No flank tenderness. NEURO: AOx3. Motor functions grossly nonfocal SKIN: No rash or erythema of visible areas Initial Vital Signs Initial Vital Signs: Vital Signs Temperature 97.7 F 12/26/23 16:43 Pulse Rate 89 12/26/23 16:43 Respiratory Rate 16 12/26/23 16:43 Blood Pressure 124/58 L 12/26/23 16:43 Pulse Oximetry 97 12/26/23 16:43 Oxygen Delivery Method Room Air 12/26/23 16:43 Procedures Laceration Repair Laceration 1: Time of procedure: 00:11 Site: face (Right forehead) Side (If applicable): right Size (cm): 6 Description: linear (Curvilinear) Depth: simple, single layer Local Anesthetic: lidocaine 1% and with epi Amount of anesthesia used (mL): 6 Pre-repair: irrigated extensively Skin layer closed with: nylon Skin layer suture size: 4-0 Number of sutures: 10 Technique: simple, interrupted Laceration 2: Time of procedure: 00:15 Site: face Side (If applicable): left Size (cm): 0.5 Description: linear Depth: simple, single layer Local Anesthetic: lidocaine 1% and with epi Amount of anesthesia used (mL): 1 Skin layer closed with: nylon Skin layer suture size: 6-0 Number of sutures: 1 Technique: simple, interrupted Course Orders Ordered: Discontinued Medications Acetaminophen (Acetaminophen 325 Mg Tablet) 975 mg PO NOW ONE Stop: 12/26/23 16:57 Last Admin: 12/26/23 17:02 Dose: 975 mg Documented By: HAYDEE Diphtheria/Tetanus/Acell Pertussis (Tet,Diph,Pertuss(Acell),Vac/Pf 0.5 Ml Syringe) 0.5 ml IM .ONCE ONE Stop: 12/27/23 00:15 Last Admin: 12/27/23 00:25 Dose: 0.5 ml Documented By: LUCIANO Oxycodone/Acetaminophen (Oxycodone/Apap 5/325 Prepack) 1 bottle MISC DIRECTED ONE Stop: 12/27/23 00:21 Last Admin: 12/27/23 00:29 Dose: 1 bottle Documented By: LUCIANO Tetanus/Diphtheria Toxoids (Tetanus Diphtheria Toxoids 0.5 Ml Vial) 0.5 ml IM .ONCE ONE Stop: 12/27/23 00:10 Vital Signs Vital signs: Vital Signs - 8 hr 12/27/23 00:38 Temperature 97.2 F L Pulse Rate 85 Respiratory Rate 16 Blood Pressure 135/87 Pulse Oximetry 97 Oxygen Delivery Method Room Air MDM - Head Injury Imaging Data CT scan - head: Radiologist's Impression: [place] [address] CT Scan Report Signed Patient: Maryan Horn MR#: [id number] : 1945 Acct:[id number] Age/Sex: 78 / F Date of Service: 12/26/23 Loc: ED Accession Number: [id number] Procedure: CT head/brain wo con Ordering Provider: Gabriella Fernando MD PROCEDURE: CT HEAD/BRAIN WO CON INDICATIONS: fall/head injury TECHNIQUE: Noncontrast 4.5 mm thick angled axial sections acquired from the foramen magnum to the vertex, with coronal and sagittal reformats. For radiation dose reduction, the following was used: automated exposure control, adjustment of mA and/or kV according to patient size. COMPARISON: [facility], CT, CT HEAD WITHOUT CONTRAST, 10/01/2017, 15:31. FINDINGS: Image quality: Diagnostic. CSF spaces: Basal cisterns are patent. No extra-axial fluid collections. The ventricles are symmetric in size and shape. Brain: No intracranial bleeds or masses. There is cerebral volume loss for age, with resultant ventricular and sulcal prominence. There are periventricular and deep white matter chronic small vessel ischemic changes. There is intracranial internal carotid artery atherosclerosis. Skull and face: Acute, comminuted nasal bone fractures with overlying periorbital and malar soft tissue edema. No acute cranial fracture. Sinuses: Visualized sinuses and mastoids are clear. IMPRESSION: 1. No acute intracranial abnormality. 2. Partially identified comminuted nasal bone fractures and soft tissue edema/hematoma. Dictated by: Singh Ayers M.D. on 12/26/2023 at 17:46 Approved by: Singh Ayers M.D. on 12/26/2023 at 17:49 CT maxillofacial: Radiologist's Impression: [place] [address] CT Scan Report Signed Patient: Maryan Horn MR#: [id number] : 1945 Acct:[id number] Age/Sex: 78 / F Date of Service: 12/26/23 Loc: ED Accession Number: [id number] Procedure: CT facial bones wo con Ordering Provider: Gabriella Fernando MD PROCEDURE: CT FACIAL BONES WO CON INDICATIONS: fall/head injury TECHNIQUE: Noncontrast 2.5 mm thick axial images acquired from the mandible through the frontal sinuses, with coronal and sagittal reformatting. For radiation dose reduction, the following was used: automated exposure control, adjustment of mA and/or kV according to patient size. COMPARISON: None. FINDINGS: Image quality: Dental amalgam artifact limits evaluation of the mandible. Bone: Acute, comminuted nasal bone fractures with adjacent soft tissue edema/hematoma surrounding the periorbital and malar regions (70). No other acute fracture or dislocation. The tear where plates are intact. Orbits: Optic globes, intraconal/extraconal fat spaces, and extraocular muscles within normal limits. No retrobulbar mass. Vessels: Bilateral common carotid bulb calcifications. Sinuses: Visualized paranasal sinuses, mastoid air cells, and middle ear cavities are clear. Dentition: Limited evaluation due to dental amalgam artifact. Soft tissues: No other acute abnormality. IMPRESSION: Acute comminuted nasal bone fractures with associated facial soft tissue edema/hematoma. Dictated by: Singh Ayers M.D. on 12/26/2023 at 17:49 Approved by: Singh Ayers M.D. on 12/26/2023 at 17:57 [facility] Narrative Medical decision making narrative: Ground level fall, laceration to forehead, also laceration medial aspect of the nose to medial canthus, no visual disturbances. CT head, no cranial brain injury pattern, nasal fractures noted. See radiology report CT cervical spine, no fractures, no dislocations. See radiology report CT maxillofacial, again demonstrate comminuted nasal fractures, no other facial fractures noted. See radiology report. Procedure repair primary closure right large forehead laceration. Small right nasal medial canthus laceration sutured with single stitch. IM tetanus shot, updated Tetanus updated. Home pack pain medication, also sent prescription to her pharmacy. Advised not to sneeze or cough or blow her nose. Follow up with Otolaryngology advised after this weekend on Saturday. She will follow up with her eye doctor as well after this weekend on Saturday Discharge Plan Departure Patient Disposition: Home Clinical Impression: Fall, Forehead laceration, Eyelid laceration, left, Fracture of nasal bones Activity Restrictions/Additional Instructions: Fall with large laceration to the right central forehead, which was sutured closed. Also small laceration nasal aspect nose extending to the eyelid area, not obviously through the nasolacrimal duct but in the general vicinity. Single stitch applied in that area. CT scanning head face cervical spine. No brain injuries, no spinal injuries. There was comminuted nasal bone fracture noted on the face and head scans. Please try to avoid rubbing pushing your nose, sneezing coughing. Follow up with Otolaryngology, contact information provided for office of Dr. Vazquez and Jai. Follow up with your graphics programmer Dr. Ambrosio. Use antibiotic ointment over the nose abrasions. Take pain medications as needed for pain control. Recheck with your earth auger operator on Saturday to see if after the swelling is reduced if any interventions in the nose/straightening is required. Recheck Saturday with your eye doctor. Wound check on Saturday with your regular doctor if you can not be seen on Saturday with your earth auger operator or your eye doctor. Return earlier to this/nearest emergency department for any change worsening symptoms or any concerns prior Prescriptions: New oxycodone-acetaminophen 5-325 mg tablet 1 tab PO Q6H PRN (Reason: pain) Qty: 14 0RF No Action lisinopril 10 mg tablet 10 mg PO DAILY Qty: 90 3RF atorvastatin 10 mg tablet 10 mg PO DAILY Qty: 90 3RF lansoprazole 30 mg capsule,delayed release(DR/EC) 30 mg PO DAILY Qty: 90 3RF Levemir FlexPen 100 unit/mL (3 mL) insulin pen 23 unit SUBCUT DAILY Patient Comments: [NO ORIGINAL SIG] timolol maleate 0.5 % drops 1 drp EYE-BOTH DAILY aspirin 81 mg tablet,delayed release (DR/EC) 81 mg PO DAILY calcium carbonate 260 mg calcium (650 mg) tablet,chewable 260 mg PO DAILY cholecalciferol (vitamin D3) PO fish oil-dha-epa PO glucos sul [id number]-gog-giycr-C-Mn [Glucosamine Chondroitin] PO multivitamin Tablet 1 tab PO DAILY ferrous sulfate 325 mg (65 mg iron) tablet 325 mg PO DAILY lactobacillus combination no.9 [Adult 50 Plus Probiotic] PO vitamin B complex [B Complex-Vitamin B12] Tablet 1 tab PO DAILY ascorbic acid (vitamin C) PO insulin lispro [Humalog U-100 Insulin] 100 unit/mL Solution Patient Comments: PRN sliding scales, uses infrequently since on ozempic Ozempic 1 mg/dose (4 mg/3 mL) pen injector 1 mg SUBCUT WEEKLY vitamin K2 100 mcg capsule 100 mcg PO DAILY letrozole 2.5 mg tablet 2.5 mg PO DAILY Referrals: Ant Ambrosio MD [Physician] - Pramod Vazquez MD [Physician] - Jeane Bonilla RN [Emergency Nurse] - Ayesha Mendez DO [Primary Care Provider] - Stand Alone Forms: Patient Portal/API/Survey
[2023-12-27] MEDS: TET,DIPH,PERTUSS(ACELL),VAC/PF 0.5 ML SYRINGE IM (00:25)
[2023-12-27] MEDS: OXYCODONE/APAP 5/325 PREPACK 1 BOTTLE MISC (00:29)
[2023-12-27 00:38] VITALS: BP 135/87; PULSE 85; RESP 16; TEMP 36.2; O2SAT 97
== END 2023-12-27 00:41 | disposition home or self-care (01) ==
PROVIDERS: Emergency Provider Emergency Medicine; PCP Family Medicine
DX: S02.2XXA Fracture of nasal bones, initial encounter for closed fracture (principal); S01.81XA Laceration without foreign body of other part of head, initial encounter; S01.112A Laceration without foreign body of left eyelid and periocular area, initial encounter; Z79.82 Long term (current) use of aspirin; W01.198A Fall on same level from slipping, tripping and stumbling with subsequent striking against other object, initial encounter; Z79.899 Other long term (current) drug therapy; Z23 Encounter for immunization
CPT/HCPCS: 12014; 70450; 70486; 72125; 90471; 99284; 90715

== ENCOUNTER → 2024-04-23 09:27 | Outpatient (CLI) | payer MEDICARE, SELFPAY ==
--- NOTE | 2024-04-23 09:28 | DI.MG.S_ITS ---
BILATERAL DIGITAL DIAGNOSTIC MAMMOGRAM 3D/2D POST LUMPECTOMY: 04/23/2024 CLINICAL: Left breast cancer. Comparison is made to exams dated: 10/04/2023 breast MRI, 04/12/2023 breast MRI, 01/21/2023 mammogram, 12/31/2022 mammogram, and 12/11/2022 mammogram - [facility]. The breasts are heterogeneously dense, which may obscure small masses (category c / 51-75% glandular tissue). The patient is status post partial mastectomy left breast. The left breast has expected post-operative findings and skin thickening secondary to radiation therapy. No significant masses, calcifications, or other findings are seen in either breast. IMPRESSION: BENIGN There is no mammographic evidence of malignancy. A 1 year screening mammogram is recommended; however, shorter interval surveillance can be considered at the direction of treating oncologic/surgical team. Findings and recommendations were conveyed to the patient during today's evaluation. This exam was interpreted at Station ID: [id number]. NOTE: For mammograms, a report in lay terms will be sent to the patient. Approximately 15% of breast malignancies will not be visualized mammographically. In the management of a palpable breast mass, a negative mammogram must not discourage biopsy of a clinically suspicious lesion. Electronically Signed By: Enrique Solis M.D. aty/:04/23/2024 10:24:10 letter sent: Normal Exam ACR BI-RADS Category 2: Benign
== END ==
PROVIDERS: PCP Family Medicine; Referring Provider Student in an Organized Health Care Education/Training Program; Visit Provider Student in an Organized Health Care Education/Training Program
DX: C50.212 Malignant neoplasm of upper-inner quadrant of left female breast (principal); Z17.0 Estrogen receptor positive status [ER+]; R92.333 Mammographic heterogeneous density, bilateral breasts
CPT/HCPCS: 77066; G0279

== ENCOUNTER → 2024-08-22 08:11 | Outpatient (CLI) | payer MEDICARE, SELFPAY ==
[2024-08-22 09:38] LABS: Alanine Aminotransferase 46 IU/L (<35); Albumin 3.8 g/dL (3.5-5.0); Albumin Globulin Ratio 1.3 (1.0-2.8); Alkaline Phosphatase 57 U/L (38-126); Aspartate Aminotransferase 42 IU/L (14-36); BUN Creatinine Ratio 36.8 (6-22); Bilirubin Total 0.4 mg/dL (0.2-1.3); Blood Urea Nitrogen 49 mg/dL (7-17); Calcium 9.7 mg/dL (8.4-10.2); Carbon Dioxide 27 mmol/L (22-32); Chloride 102 mmol/L (98-107); Cholesterol 160 mg/dL (140-199); Estimated Glomerular Filt Rate 41 mL/min (>60); Globulin 2.9 g/dL (1.7-4.1); Glucose 109 mg/dL (70-99); HDL Cholesterol 52 mg/dL (40-60); HEMOLYSIS < 15 (0-50); LDL Cholesterol Calculated 94 mg/dL (<100); Potassium 4.6 mmol/L (3.4-5.1); Sodium 137 mmol/L (137-145); Total Protein 6.7 g/dL (6.3-8.2); Triglycerides 71 mg/dL (35-150)
[2024-08-22 09:40] LABS: Hemoglobin A1C% w Est Avg Glu 6.8 % (4.0-6.0)
[2024-08-22 10:01] LABS: Creatinine Urine Random 88.95 mg/dL
[2024-08-22 10:06] LABS: Microalbumin Urine Random 1.2 mg/dL (0-1.6)
== END ==
PROVIDERS: PCP Family Medicine; Referring Provider Internal Medicine Endocrinology, Diabetes & Metabolism; Visit Provider Internal Medicine Endocrinology, Diabetes & Metabolism
DX: E11.22 Type 2 diabetes mellitus with diabetic chronic kidney disease (principal); I12.9 Hypertensive chronic kidney disease with stage 1 through stage 4 chronic kidney disease, or unspecified chronic kidney disease; N18.32 Chronic kidney disease, stage 3b; E78.5 Hyperlipidemia, unspecified; Z79.4 Long term (current) use of insulin
CPT/HCPCS: 36415; 80053; 80061; 82043; 82570; 83036

== ENCOUNTER → 2024-10-02 14:58 | Outpatient (CLI) | payer MEDICARE, SELFPAY ==
[2024-10-02 18:22] LABS: Alanine Aminotransferase 25 IU/L (<35); Albumin 3.9 g/dL (3.5-5.0); Albumin Globulin Ratio 1.4 (1.0-2.8); Alkaline Phosphatase 54 U/L (38-126); Blood Urea Nitrogen 39 mg/dL (7-17); Calcium 9.7 mg/dL (8.4-10.2); Carbon Dioxide 25 mmol/L (22-32); Chloride 104 mmol/L (98-107); Estimated Glomerular Filt Rate 48 mL/min (>60); Globulin 2.8 g/dL (1.7-4.1); Glucose 169 mg/dL (70-99); HEMOLYSIS < 15 (0-50); Potassium 4.5 mmol/L (3.4-5.1); Sodium 136 mmol/L (137-145); Total Protein 6.7 g/dL (6.3-8.2)
== END ==
PROVIDERS: PCP Family Medicine; Referring Provider Family Medicine; Visit Provider Internal Medicine Endocrinology, Diabetes & Metabolism
DX: R79.89 Other specified abnormal findings of blood chemistry (principal)
CPT/HCPCS: 36415; 80053

== ENCOUNTER → 2024-10-02 15:11 | Outpatient (CLI) | payer MEDICARE, SELFPAY ==
--- NOTE | 2024-10-02 15:12 | DI.MRI.S_ITS ---
MR breast BI wo/w con: 10/02/2024. BI-RADS: 3 CLINICAL: 79-year old female for bilateral diagnostic breast MRI referred for supplemental breast cancer screening due to personal history of breast cancer. Patient reports a history of left breast carcinoma diagnosed at age 78. No first-degree family history of breast cancer. Patient was diagnosed within the last 5 years. PRIOR EXAMS: Breast MRI: 10/04/2023, 04/12/2023 Mammograms: 04/23/2024, 04/18/2023, 03/28/2023, 01/21/2023, 12/31/2022, 12/11/2022, 12/05/2021, 11/10/2020, 10/19/2019, 05/28/2018, 05/20/2017, 05/02/2016, 04/18/2015. MRI TECHNIQUE: Bilateral breast MRI was performed on a 1.5 Mikaela magnet using a dedicated breast coil with mild compression. Axial T1 and T2 STIR sequences were obtained. Dynamic contrast enhanced VIBRANT fat-suppressed sequences were obtained. Delayed sagittal high resolution or sagittal reconstructed isotropic sequence was also obtained. Subtraction images and maximum intensity projection images were obtained. The study was evaluated using zlien software. IV Contrast: 20 ml ProHance. FIBROGLANDULAR TISSUE Bilateral: C. Heterogeneous fibroglandular tissue. BACKGROUND PARENCHYMAL ENHANCEMENT Bilateral: Minimal symmetrical background parenchymal enhancement. BREAST FINDINGS Right: There is no suspicious enhancement or lymphadenopathy. Left: Central, Retroareolar, Far Anterior depth: There is increased skin thickening in the nipple areolar complex with new non-mass enhancement in the retroareolar region extending to the fluid collection, for example . Finding may represent evolving post treatment changes. Left: There is redemonstration of postsurgical changes from prior lumpectomy. There is again seen rim enhancing fluid collection in the medial breast with central T1 hyperintensity most consistent with postsurgical hematoma. The finding measures 0.9 x 0.6 cm (), decreased in size since prior MR 10/04/2023. IMPRESSION: Right * No evidence of malignancy. Left: Central, Retroareolar, Far Anterior depth * Probably Benign. RECOMMENDATIONS Left: Central, Retroareolar, Far Anterior depth * Recommend diagnostic mammogram with possible ultrasound. If no correlate identified, recommend follow up MRI in 6 months. OVERALL ASSESSMENT CATEGORY BI-RADS-3: Probably Benign. ELECTRONICALLY SIGNED: Mary Gunter M.D. on 10/05/2024 at 01:11:21 AM PT Interpreting Station ID: [id number]
== END ==
LOC: MRI 15:12
PROVIDERS: PCP Family Medicine; Referring Provider Family Medicine; Visit Provider Nurse Practitioner
DX: R92.8 Other abnormal and inconclusive findings on diagnostic imaging of breast (principal); C50.212 Malignant neoplasm of upper-inner quadrant of left female breast; R92.333 Mammographic heterogeneous density, bilateral breasts; Z17.0 Estrogen receptor positive status [ER+]
CPT/HCPCS: 36415; 77049; 80053; A9579